=== PATIENT | male | born 1955 | race Caucasian/White ===

== ENCOUNTER 2018-02-16 09:50 | Inpatient (IN) | payer MEDICARE, OTHER ==
[~2018-02-16] VITALS: Ht 182.9 cm; Wt 73.7 kg
[2018-02-16] MEDS ORDERED: morphine 4 MG/ML inj SYRINge IV PRN (10:00)
[2018-02-16] MEDS ORDERED: normal saline 1000ML IV soln IVB ONE (10:00)
[2018-02-16] MEDS ORDERED: ondansetron/PF 4mg/2ml inj IV ONE (10:00)
[2018-02-16] MEDS ORDERED: insulin regular, human 10 units/0.1 ml syringe IV ONE (10:00)
[2018-02-16 10:22] LABS: BASOPHILS % (AUTO) 0 % (0-1); EOSINOPHILS # (AUTO) 0.3 X10'3 (0-0.9); EOSINOPHILS % (AUTO) 1.4 % (0-6); HEMATOCRIT 41.9 % (42.0-52.0); HEMOGLOBIN 14.3 g/dl (14.0-17.9); LYMPHOCYTES # (AUTO) 0.2 X10'3 (1.1-4.8); LYMPHOCYTES % (AUTO) 1.2 % (21-51); MEAN CORPUSCULAR HEMOGLOBIN 32.3 PG (27.0-31.0); MEAN CORPUSCULAR HGB CONC 34.1 % (33.0-36.5); MEAN CORPUSCULAR VOLUME 94.8 FL (78-98); MEAN PLATELET VOLUME 9.5 FL (7.4-10.4); MONOCYTES % (AUTO) 5.4 % (2-12); NEUTROPHILS # (AUTO) 17.3 X10'3 (1.8-7.7); PLATELET COUNT 203 X10'3 (140-440); RED BLOOD COUNT 4.42 X10'6 (4.70-6.10); WHITE BLOOD COUNT 18.8 X10'3 (4.5-11.0)
[2018-02-16 10:38] LABS: ALANINE AMINOTRANSFERASE 26 U/L (12-78); ALBUMIN 3.9 G/DL (3.4-5.0); ALBUMIN/GLOBULIN RATIO 1.4 (1.1-1.5); ALKALINE PHOSPHATASE 73 IU/L (46-116); ANION GAP 31 (8-16); ASPARTATE AMINO TRANSFERASE 15 U/L (10-37); BILIRUBIN,TOTAL 1.2 MG/DL (0.1-1.0); BLOOD UREA NITROGEN 45 MG/DL (7-18); BUN/CREATININE RATIO 24.6 (5.4-32.0); CHLORIDE 95 MMOL/L (99-107); CREATININE 1.83 MG/DL (0.60-1.10); LIPASE 83 U/L (73-393); POTASSIUM 3.4 MMOL/L (3.5-5.1); SODIUM 140 MMOL/L (135-145); TOTAL PROTEIN 6.7 G/DL (6.4-8.2); eGFR 38 ML/MIN
[2018-02-16 11:05] LABS: GLUCOSE 617 MG/DL (70-104); TOTAL CARBON DIOXIDE 14.1 MMOL/L (24-32)
[2018-02-16] MEDS ORDERED: insulin regular, human 100 UNIT in normal saline 100ml IV soln 99 ML IV PRN ×2 (11:05)
[2018-02-16 11:17] LABS: CLARITY,URINE CLEAR (Clear); COLOR,URINE STRAW (Yellow); GLUCOSE, URINE >=1000 mg/dl (Neg); KETONES,URINE >=80 mg/dl (Neg); LEUKOCYTE ESTERASE ,URINE NEGATIVE (Neg); NITRITES, URINE NEGATIVE (Neg); OCCULT BLOOD,URINE NEGATIVE (Neg); PH,URINE 5.5 (4.8-8.0); PROTEIN,URINE NEGATIVE (Neg); UROBILINOGEN,URINE 0.2 E.U/dL (0.2-1.0)
[2018-02-16 11:24] LABS: BACTERIA,URINE NONE SEEN /HPF (Neg); MUCUS STRANDS FEW /LPF (Neg); RBC,URINE 0-2 /HPF (0-2); SQUAMOUS EPITHELIAL CELL,UR FEW /LPF (FEW); TRANSITIONAL EPI CELLS,URINE FEW /HPF; UA COLLECTION TYPE CLN CATCH MIDSTREAM; WBC,URINE 0-4 /HPF (0-4)
[2018-02-16] MEDS ORDERED: proCHLORperazine 10 MG/2 ml inj IV ONE (11:40)
[2018-02-16 11:51] LABS: ABG BASE EXCESS -9.7 mmol/L (-2.0-3.0); ABG HCO3 13.2 mmol/L (22.0-26.0); ABG OXYGEN SATURATION 97.4 % (95-98); ABG PCO2 (T) 22.7 mmHg (35.0-48.0); ABG PH (T) 7.383 (7.350-7.450); ABG PO2 (T) 100.2 mmHg (83-108); ALLEN'S TEST Positive; FCOHb 0.6 % (0.5-1.5); FMetHb 0.2 % (0.3-1.12); FO2Hb 96.6 % (94-100)
[2018-02-16] MEDS ORDERED: sodium bicarbonate (8.4%) inj. 100 MEQ in dextrose 5% water 500ml 500 ML IV PRN (12:21)
[2018-02-16] MEDS ORDERED: potassium CL 20mEq in D5-1/2NS 1,000 ML IV PRN (12:21)
[2018-02-16] MEDS ORDERED: sodium bicarbonate (8.4%) inj. 50 MEQ in dextrose 5% water 500ml 250 ML IV PRN (12:21)
[2018-02-16] MEDS ORDERED: insulin regular, DKA only 100 UNIT in normal saline 100ml IV soln 99 ML IV SCH ×2 (12:21)
[2018-02-16] MEDS: normal saline 1000ml 1,000 ML IV SCH ×6 (12:21→20:21)
[2018-02-16] MEDS ORDERED: sodium phosphate inj. 15 MMOL in dextrose 5%-water 150 ML IV PRN (12:25)
[2018-02-16] MEDS ORDERED: mag hydrox/Alum hydrox/simeth 30ml oral suspension PO PRN (12:25)
[2018-02-16] MEDS ORDERED: magnesium 4gm in 100ml NS 100 ML IV PRN (12:25)
[2018-02-16] MEDS ORDERED: Neutra Phos packet PO PRN ×2 (12:25→23:30)
[2018-02-16] MEDS ORDERED: ipratropium/albuterol 3ml nebule NEB PRN (12:25)
[2018-02-16] MEDS ORDERED: potassium Cl 40MEQ/NS 500ml 500 ML IV PRN ×3 (12:25)
[2018-02-16] MEDS ORDERED: insulin regular, human 10 units/0.1 ml syringe SQ PRN (12:25)
[2018-02-16] MEDS ORDERED: acetaminophen 325mg tablet PO PRN (12:25)
[2018-02-16] MEDS ORDERED: sodium phosphate inj. 30 MMOL in dextrose 5%-water 250 ML IV PRN (12:25)
[2018-02-16] MEDS ORDERED: potassium Cl 20 mEq SR tablet PO PRN ×4 (12:25)
[2018-02-16] MEDS ORDERED: magnesium 1gm/100ml D5W IVPB 100 ML IV PRN (12:25)
[2018-02-16] MEDS ORDERED: IPRA3AMP31 IH (12:58)
[2018-02-16] MEDS ORDERED: INSU100V12 SQ (12:58)
[2018-02-16] MEDS ORDERED: VALA100027 PO (12:58)
[2018-02-16] MEDS ORDERED: ATOR40TA3 PO (12:58)
[2018-02-16] MEDS ORDERED: LISI2.5T2 PO (12:58)
[2018-02-16] MEDS ORDERED: INSU100C4 SQ (12:58)
[2018-02-16] MEDS: insulin regular, DKA only 100 UNIT in normal saline 100ml IV soln 99 ML IV SCH ×2 (13:51)
[2018-02-16 14:40] VITALS: BP 114/44
[2018-02-16 14:42] LABS: ALBUMIN 3.3 G/DL (3.4-5.0); ANION GAP 28 (8-16); BLOOD UREA NITROGEN 39 MG/DL (7-18); BUN/CREATININE RATIO 25.3 (5.4-32.0); CHLORIDE 105 MMOL/L (99-107); CREATININE 1.54 MG/DL (0.60-1.10); GLUCOSE 442 MG/DL (70-104); PHOSPHORUS 2.2 MG/DL (2.3-4.5); POTASSIUM 3.2 MMOL/L (3.5-5.1); SODIUM 145 MMOL/L (135-145); eGFR 46 ML/MIN
[2018-02-16 14:46] LABS: TOTAL CARBON DIOXIDE 12.2 MMOL/L (24-32)
[2018-02-16] MEDS: valacyclovir 500mg tablet PO SCH (17:51)
[2018-02-16 19:00] VITALS: BP 117/46
[2018-02-16 19:20] LABS: ALANINE AMINOTRANSFERASE 20 U/L (12-78); ALKALINE PHOSPHATASE 68 IU/L (46-116); ANION GAP 22 (8-16); ASPARTATE AMINO TRANSFERASE 25 U/L (10-37); BILIRUBIN,TOTAL 0.9 MG/DL (0.1-1.0); BLOOD UREA NITROGEN 35 MG/DL (7-18); BUN/CREATININE RATIO 25.5 (5.4-32.0); CALCIUM 7.8 MG/DL (8.5-10.1); CHLORIDE 110 MMOL/L (99-107); CREATININE 1.37 MG/DL (0.60-1.10); GLUCOSE 228 MG/DL (70-104); POTASSIUM 3.2 MMOL/L (3.5-5.1); SODIUM 146 MMOL/L (135-145); eGFR 52 ML/MIN
[2018-02-16] MEDS: atorvastatin 20mg tablet PO SCH (20:51)
[2018-02-16] MEDS: ondansetron/PF 4mg/2ml inj IV PRN (20:51)
[2018-02-16 22:46] LABS: ALBUMIN 2.9 G/DL (3.4-5.0); BLOOD UREA NITROGEN 28 MG/DL (7-18); BUN/CREATININE RATIO 21.1 (5.4-32.0); CALCIUM 7.8 MG/DL (8.5-10.1); CREATININE 1.33 MG/DL (0.60-1.10); GLUCOSE 87 MG/DL (70-104); TOTAL CARBON DIOXIDE 26.2 MMOL/L (24-32); eGFR 54 ML/MIN
[2018-02-16 23:00] VITALS: BP 106/50
[2018-02-16 23:03] LABS: ANION GAP 7 (8-16); CHLORIDE 115 MMOL/L (99-107); SODIUM 148 MMOL/L (135-145)
[2018-02-16 23:06] LABS: PHOSPHORUS 1.2 MG/DL (2.3-4.5)
[2018-02-17] MEDS: normal saline 1000ml 1,000 ML IV SCH ×11 (00:02→22:31)
[2018-02-17] MEDS ORDERED: dextrose ORAL solution 15 GM/59 ML bottle PO PRN ×2 (00:05)
[2018-02-17] MEDS ORDERED: glucagon, human recombinant 1mg kit SUBCUT PRN (00:05)
[2018-02-17] MEDS ORDERED: MESSAGE TO PHARMACY PO ONE (00:05)
[2018-02-17] MEDS ORDERED: dextrose 50%-water 50ml dispensing syringe IV PRN ×2 (00:05)
[2018-02-17] MEDS: insulin Lispro (HumaLOG) vial - multi-dose SQ SCH ×3 (00:40→13:29)
[2018-02-17 03:00] VITALS: BP 123/57
[2018-02-17 03:02] LABS: BASOPHILS % (AUTO) 0.1 % (0-1); EOSINOPHILS # (AUTO) 0.2 X10'3 (0-0.9); EOSINOPHILS % (AUTO) 1.2 % (0-6); HEMATOCRIT 29.8 % (42.0-52.0); LYMPHOCYTES # (AUTO) 0.6 X10'3 (1.1-4.8); LYMPHOCYTES % (AUTO) 5.2 % (21-51); MEAN CORPUSCULAR HEMOGLOBIN 32.1 PG (27.0-31.0); MEAN CORPUSCULAR HGB CONC 33.7 % (33.0-36.5); MEAN CORPUSCULAR VOLUME 95.3 FL (78-98); MEAN PLATELET VOLUME 8.6 FL (7.4-10.4); MONOCYTES % (AUTO) 7.6 % (2-12); NEUTROPHILS # (AUTO) 10.8 X10'3 (1.8-7.7); NEUTROPHILS % (AUTO) 85.9 % (42-75); PLATELET COUNT 121 X10'3 (140-440); RED BLOOD COUNT 3.13 X10'6 (4.70-6.10); RED CELL DISTRIBUTION WIDTH 13.6 % (11.5-14.5); WHITE BLOOD COUNT 12.5 X10'3 (4.5-11.0)
[2018-02-17 04:41] LABS: ALANINE AMINOTRANSFERASE 22 U/L (12-78); ALBUMIN 2.9 G/DL (3.4-5.0); ALBUMIN/GLOBULIN RATIO 1.2 (1.1-1.5); ALKALINE PHOSPHATASE 57 IU/L (46-116); ANION GAP 8 (8-16); ASPARTATE AMINO TRANSFERASE 23 U/L (10-37); BILIRUBIN,TOTAL 0.9 MG/DL (0.1-1.0); BLOOD UREA NITROGEN 24 MG/DL (7-18); BUN/CREATININE RATIO 19.8 (5.4-32.0); CALCIUM 8.1 MG/DL (8.5-10.1); CHLORIDE 113 MMOL/L (99-107); CHOL/HDL RATIO 3.7 (0.00-4.99); CHOLESTEROL 179 MG/DL (0-200); CREATININE 1.21 MG/DL (0.60-1.10); GLUCOSE 167 MG/DL (70-104); HDL CHOLESTEROL 48 MG/DL (35-60); MAGNESIUM 1.9 MG/DL (1.5-2.4); PHOSPHORUS 1.5 MG/DL (2.3-4.5); POTASSIUM 4.2 MMOL/L (3.5-5.1); SODIUM 147 MMOL/L (135-145); TOTAL CARBON DIOXIDE 25.6 MMOL/L (24-32); TOTAL PROTEIN 5.3 G/DL (6.4-8.2); TRIGLYCERIDES 65 MG/DL (20-135); eGFR 61 ML/MIN
[2018-02-17 06:00] VITALS: BP 132/47
[2018-02-17] MEDS ORDERED: INSU100V9 SQ (07:57)
[2018-02-17] MEDS: K and/or MAG REPLACEMENT MC SCH (08:00)
[2018-02-17] MEDS ORDERED: K and/or MAG REPLACEMENT MC SCH (08:00)
[2018-02-17] MEDS: lisinopril 2.5mg tablet PO SCH (08:18)
[2018-02-17] MEDS: enoxaparin 40mg/0.4ml syringe SQ SCH (08:19)
[2018-02-17] MEDS: insulin regular, DKA only 100 UNIT in normal saline 100ml IV soln 99 ML IV SCH ×8 (09:05→20:45)
[2018-02-17] MEDS: valacyclovir 500mg tablet PO SCH ×3 (09:27→16:00)
[2018-02-17] MEDS ORDERED: pneumococcal 23-VAL P-sac vacc 25 mcg/0.5ml vial IMVAC ONE (10:00)
[2018-02-17 11:00] VITALS: BP 124/54
[2018-02-17 13:54] LABS: LDL CHOLESTEROL 122 MG/DL (50-100)
[2018-02-17] MEDS ORDERED: adenosine 3mg/ml 2ml vial IV ONE (13:55)
[2018-02-17 14:12] LABS: ALANINE AMINOTRANSFERASE 38 U/L (12-78); ALBUMIN 3.2 G/DL (3.4-5.0); ALBUMIN/GLOBULIN RATIO 1.2 (1.1-1.5); ALKALINE PHOSPHATASE 68 IU/L (46-116); ANION GAP 18 (8-16); ASPARTATE AMINO TRANSFERASE 68 U/L (10-37); BILIRUBIN,TOTAL 1.5 MG/DL (0.1-1.0); BLOOD UREA NITROGEN 22 MG/DL (7-18); BUN/CREATININE RATIO 19.8 (5.4-32.0); CALCIUM 8.2 MG/DL (8.5-10.1); CHLORIDE 106 MMOL/L (99-107); CREATININE 1.11 MG/DL (0.60-1.10); GLUCOSE 343 MG/DL (70-104); POTASSIUM 3.9 MMOL/L (3.5-5.1); SODIUM 143 MMOL/L (135-145); TOTAL CARBON DIOXIDE 18.8 MMOL/L (24-32); TOTAL PROTEIN 5.8 G/DL (6.4-8.2); eGFR 67 ML/MIN
[2018-02-17] MEDS ORDERED: sodium bicarbonate (8.4%) inj. 50 MEQ in dextrose 5% water 500ml 250 ML IV PRN (14:31)
[2018-02-17] MEDS ORDERED: sodium bicarbonate (8.4%) inj. 100 MEQ in dextrose 5% water 500ml 500 ML IV PRN (14:31)
[2018-02-17] MEDS ORDERED: potassium Cl 40MEQ/NS 500ml 500 ML IV PRN ×2 (14:35)
[2018-02-17] MEDS ORDERED: insulin regular, human 10 units/0.1 ml syringe SQ PRN (14:35)
[2018-02-17] MEDS ORDERED: metoprolol tartrate 1mg/ml inj IV PRN (14:40)
[2018-02-17] MEDS: metoprolol tartrate 50mg tablet PO SCH ×2 (14:50→20:00)
[2018-02-17 15:00] VITALS: BP 136/64
[2018-02-17] MEDS: metoclopramide 5 mg/ml inj IV PRN ×2 (15:30→23:14)
[2018-02-17] MEDS ORDERED: dextrose 5%-1/4 normal saline 1,000 ML IV PRN (15:50)
[2018-02-17 15:51] LABS: ALBUMIN 2.9 G/DL (3.4-5.0); ANION GAP 14 (8-16); BLOOD UREA NITROGEN 21 MG/DL (7-18); BUN/CREATININE RATIO 17.9 (5.4-32.0); CALCIUM 8.1 MG/DL (8.5-10.1); CHLORIDE 110 MMOL/L (99-107); CREATININE 1.17 MG/DL (0.60-1.10); GLUCOSE 255 MG/DL (70-104); POTASSIUM 3.1 MMOL/L (3.5-5.1); SODIUM 146 MMOL/L (135-145); TOTAL CARBON DIOXIDE 22.4 MMOL/L (24-32); eGFR 63 ML/MIN
[2018-02-17 15:58] LABS: PHOSPHORUS 0.8 MG/DL (2.3-4.5)
[2018-02-17 17:35] LABS: ANION GAP 10 (8-16); BLOOD UREA NITROGEN 18 MG/DL (7-18); BUN/CREATININE RATIO 15.1 (5.4-32.0); CALCIUM 7.5 MG/DL (8.5-10.1); CHLORIDE 111 MMOL/L (99-107); CREATININE 1.19 MG/DL (0.60-1.10); GLUCOSE 141 MG/DL (70-104); SODIUM 146 MMOL/L (135-145); TOTAL CARBON DIOXIDE 24.6 MMOL/L (24-32); eGFR 62 ML/MIN
[2018-02-17] MEDS: Protein Smoothie (high protein) 240ml (8oz) cup PO SCH ×2 (17:39→18:00)
[2018-02-17] MEDS ORDERED: sodium phosphate inj. 30 MMOL in dextrose 5%-water 250 ML IV PRN (18:00)
[2018-02-17] MEDS ORDERED: sodium phosphate inj. 15 MMOL in dextrose 5%-water 150 ML IV PRN (18:00)
[2018-02-17 18:04] LABS: POTASSIUM 2.6 MMOL/L (3.5-5.1)
[2018-02-17 18:05] LABS: PHOSPHORUS 0.8 MG/DL (2.3-4.5)
[2018-02-17 19:00] VITALS: BP 95/61
[2018-02-17] MEDS: potassium Cl 40MEQ/NS 500ml 500 ML IV PRN ×2 (19:27)
[2018-02-17] MEDS: atorvastatin 20mg tablet PO SCH (21:00)
[2018-02-17] MEDS: insulin glargine (Lantus) pen - multi-dose SQ SCH (21:00)
[2018-02-17 21:59] LABS: ALBUMIN 2.8 G/DL (3.4-5.0); ANION GAP 7 (8-16); BLOOD UREA NITROGEN 16 MG/DL (7-18); BUN/CREATININE RATIO 16.8 (5.4-32.0); CALCIUM 7.9 MG/DL (8.5-10.1); CHLORIDE 111 MMOL/L (99-107); CREATININE 0.95 MG/DL (0.60-1.10); GLUCOSE 121 MG/DL (70-104); POTASSIUM 3.4 MMOL/L (3.5-5.1); SODIUM 144 MMOL/L (135-145); TOTAL CARBON DIOXIDE 26.1 MMOL/L (24-32); eGFR 80 ML/MIN
[2018-02-17] MEDS: ondansetron/PF 4mg/2ml inj IV PRN (22:10)
[2018-02-17 23:00] VITALS: BP 126/61
[2018-02-18] MEDS: potassium Cl 40MEQ/NS 500ml 500 ML IV PRN (01:25)
[2018-02-18 02:18] LABS: ALBUMIN 2.7 G/DL (3.4-5.0); ANION GAP 9 (8-16); BLOOD UREA NITROGEN 14 MG/DL (7-18); BUN/CREATININE RATIO 15.2 (5.4-32.0); CALCIUM 7.5 MG/DL (8.5-10.1); CHLORIDE 109 MMOL/L (99-107); CREATININE 0.92 MG/DL (0.60-1.10); GLUCOSE 258 MG/DL (70-104); PHOSPHORUS 1.8 MG/DL (2.3-4.5); POTASSIUM 3.8 MMOL/L (3.5-5.1); SODIUM 143 MMOL/L (135-145); TOTAL CARBON DIOXIDE 25.4 MMOL/L (24-32); eGFR 83 ML/MIN
[2018-02-18] MEDS: normal saline 1000ml 1,000 ML IV SCH ×8 (02:31→21:48)
[2018-02-18 03:00] VITALS: BP 123/57
[2018-02-18] MEDS: potassium CL 20mEq in D5-1/2NS 1,000 ML IV PRN ×2 (03:35→15:50)
[2018-02-18 06:00] VITALS: BP 135/66
[2018-02-18 06:30] LABS: BASOPHILS % (AUTO) 0.2 % (0-1); EOSINOPHILS % (AUTO) 0.2 % (0-6); HEMATOCRIT 36.6 % (42.0-52.0); HEMOGLOBIN 13.1 g/dl (14.0-17.9); LYMPHOCYTES # (AUTO) 1.1 X10'3 (1.1-4.8); MEAN CORPUSCULAR HEMOGLOBIN 34.2 PG (27.0-31.0); MEAN CORPUSCULAR HGB CONC 35.7 % (33.0-36.5); MEAN CORPUSCULAR VOLUME 95.8 FL (78-98); MEAN PLATELET VOLUME 9.6 FL (7.4-10.4); MONOCYTES # (AUTO) 0.9 X10'3 (0-0.9); MONOCYTES % (AUTO) 8.4 % (2-12); NEUTROPHILS % (AUTO) 81.2 % (42-75); PLATELET COUNT 115 X10'3 (140-440); RED BLOOD COUNT 3.82 X10'6 (4.70-6.10); RED CELL DISTRIBUTION WIDTH 12.7 % (11.5-14.5)
[2018-02-18 06:40] LABS: ALANINE AMINOTRANSFERASE 63 U/L (12-78); ALBUMIN 2.8 G/DL (3.4-5.0); ALBUMIN/GLOBULIN RATIO 1.2 (1.1-1.5); ALKALINE PHOSPHATASE 63 IU/L (46-116); ANION GAP 7 (8-16); ASPARTATE AMINO TRANSFERASE 61 U/L (10-37); BLOOD UREA NITROGEN 11 MG/DL (7-18); BUN/CREATININE RATIO 11.1 (5.4-32.0); CALCIUM 7.4 MG/DL (8.5-10.1); CHLORIDE 111 MMOL/L (99-107); CREATININE 0.99 MG/DL (0.60-1.10); GLUCOSE 165 MG/DL (70-104); MAGNESIUM 1.6 MG/DL (1.5-2.4); POTASSIUM 3.5 MMOL/L (3.5-5.1); SODIUM 145 MMOL/L (135-145); TOTAL CARBON DIOXIDE 26.6 MMOL/L (24-32); TOTAL PROTEIN 5.2 G/DL (6.4-8.2); eGFR 76 ML/MIN
[2018-02-18] MEDS ORDERED: potassium Cl 20 mEq SR tablet PO PRN (07:05)
[2018-02-18] MEDS ORDERED: potassium Cl 40MEQ/NS 500ml 500 ML IV PRN (07:05)
[2018-02-18] MEDS ORDERED: magnesium 1gm/100ml D5W IVPB 100 ML IV PRN (07:05)
[2018-02-18] MEDS: metoclopramide 5 mg/ml inj IV PRN ×2 (07:09→13:36)
[2018-02-18 07:15] LABS: ABG BASE EXCESS 1.5 mmol/L (-2.0-3.0); ABG HCO3 25.2 mmol/L (22.0-26.0); ABG OXYGEN SATURATION 93.3 % (95-98); ABG PCO2 (T) 36.7 mmHg (35.0-48.0); ABG PH (T) 7.455 (7.350-7.450); ABG PO2 (T) 63.1 mmHg (83-108); FCOHb 0.5 % (0.5-1.5); FMetHb 0.2 % (0.3-1.12); FO2Hb 92.6 % (94-100); TOTAL HEMOGLOBIN 12.9 G/dl (14.0-18.0)
[2018-02-18] MEDS: lisinopril 2.5mg tablet PO SCH (07:59)
[2018-02-18] MEDS: metoprolol tartrate 50mg tablet PO SCH ×2 (07:59→20:06)
[2018-02-18] MEDS: K and/or MAG REPLACEMENT MC SCH (08:00)
[2018-02-18] MEDS: enoxaparin 40mg/0.4ml syringe SQ SCH (08:00)
[2018-02-18] MEDS ORDERED: K and/or MAG REPLACEMENT MC SCH (08:00)
[2018-02-18] MEDS: Protein Smoothie (high protein) 240ml (8oz) cup PO SCH ×3 (08:00→18:31)
[2018-02-18] MEDS: valacyclovir 500mg tablet PO SCH ×3 (08:47→16:00)
[2018-02-18 11:00] VITALS: BP 124/61
[2018-02-18] MEDS: sucralfate 1gm/10ml UD suspension PO SCH ×3 (11:32→20:07)
[2018-02-18 15:00] VITALS: BP 135/73
[2018-02-18] MEDS: ondansetron/PF 4mg/2ml inj IV PRN (16:38)
[2018-02-18] MEDS ORDERED: guaiFENesin/codeine phos 10ml UD oral syrup PO PRN (16:45)
[2018-02-18] MEDS: benzonatate 100mg capsule PO SCH (17:16)
[2018-02-18] MEDS: insulin Lispro (HumaLOG) vial - multi-dose SQ SCH (17:42)
[2018-02-18 19:00] VITALS: BP 103/55
[2018-02-18] MEDS: atorvastatin 20mg tablet PO SCH (20:06)
[2018-02-18] MEDS: famotidine 20mg tablet PO SCH (20:06)
[2018-02-18] MEDS: insulin glargine (Lantus) pen - multi-dose SQ SCH (21:15)
[2018-02-18 23:00] VITALS: BP 120/61
[2018-02-19] MEDS: valacyclovir 500mg tablet PO SCH
[2018-02-19] MEDS: normal saline 1000ml 1,000 ML IV SCH ×5 (02:31→10:30)
[2018-02-19 03:00] VITALS: BP 153/68
[2018-02-19 05:27] LABS: BASOPHILS % (AUTO) 0.3 % (0-1); EOSINOPHILS # (AUTO) 0.1 X10'3 (0-0.9); EOSINOPHILS % (AUTO) 1.4 % (0-6); HEMATOCRIT 40.3 % (42.0-52.0); HEMOGLOBIN 13.6 g/dl (14.0-17.9); LYMPHOCYTES # (AUTO) 1.4 X10'3 (1.1-4.8); LYMPHOCYTES % (AUTO) 14.6 % (21-51); MEAN CORPUSCULAR HEMOGLOBIN 32.2 PG (27.0-31.0); MEAN CORPUSCULAR HGB CONC 33.8 % (33.0-36.5); MEAN CORPUSCULAR VOLUME 95.2 FL (78-98); MEAN PLATELET VOLUME 9.4 FL (7.4-10.4); MONOCYTES # (AUTO) 0.6 X10'3 (0-0.9); MONOCYTES % (AUTO) 6.8 % (2-12); NEUTROPHILS # (AUTO) 7.2 X10'3 (1.8-7.7); NEUTROPHILS % (AUTO) 76.9 % (42-75); PLATELET COUNT 108 X10'3 (140-440); RED BLOOD COUNT 4.23 X10'6 (4.70-6.10); RED CELL DISTRIBUTION WIDTH 13.6 % (11.5-14.5); WHITE BLOOD COUNT 9.4 X10'3 (4.5-11.0)
[2018-02-19 05:43] LABS: ALANINE AMINOTRANSFERASE 60 U/L (12-78); ALKALINE PHOSPHATASE 79 IU/L (46-116); ANION GAP 6 (8-16); ASPARTATE AMINO TRANSFERASE 55 U/L (10-37); BILIRUBIN,TOTAL 0.9 MG/DL (0.1-1.0); BLOOD UREA NITROGEN 9 MG/DL (7-18); BUN/CREATININE RATIO 14.1 (5.4-32.0); CALCIUM 7.6 MG/DL (8.5-10.1); CHLORIDE 104 MMOL/L (99-107); CREATININE 0.64 MG/DL (0.60-1.10); GLUCOSE 181 MG/DL (70-104); MAGNESIUM 2.3 MG/DL (1.5-2.4); POTASSIUM 3.2 MMOL/L (3.5-5.1); SODIUM 140 MMOL/L (135-145); TOTAL CARBON DIOXIDE 30.2 MMOL/L (24-32); TOTAL PROTEIN 5.9 G/DL (6.4-8.2); eGFR > 90 ML/MIN
[2018-02-19 06:00] VITALS: BP 132/67
[2018-02-19] MEDS ORDERED: pantoprazole 40mg Tablet.DR PO SCH (07:30)
[2018-02-19] MEDS: sucralfate 1gm/10ml UD suspension PO SCH ×2 (07:44→11:00)
[2018-02-19] MEDS: famotidine 20mg tablet PO SCH (07:45)
[2018-02-19] MEDS: lisinopril 2.5mg tablet PO SCH (07:45)
[2018-02-19] MEDS: benzonatate 100mg capsule PO SCH ×2 (07:45)
[2018-02-19] MEDS: enoxaparin 40mg/0.4ml syringe SQ SCH (07:45)
[2018-02-19] MEDS: metoprolol tartrate 50mg tablet PO SCH (07:48)
[2018-02-19] MEDS: Protein Smoothie (high protein) 240ml (8oz) cup PO SCH (07:48)
[2018-02-19] MEDS: K and/or MAG REPLACEMENT MC SCH (07:48)
[2018-02-19] MEDS: insulin Lispro (HumaLOG) vial - multi-dose SQ SCH (10:00)
[2018-02-19] MEDS ORDERED: METO25TA6 PO (10:09)
[2018-02-19] MEDS ORDERED: SUCR1ORA PO (10:09)
[2018-02-19] MEDS ORDERED: FAMO20TA8 PO (10:09)
[2018-02-19] MEDS ORDERED: POTA-82 PO (10:09)
== END 2018-02-19 12:39 | disposition home or self-care (01) | DRG 637 ==
LOC: ER 09:51 → ED HOLD 12:21 → PCU 3S 14:43
PROVIDERS: ADMIT Family Medicine; ATTEND Family Medicine
DX: E10.10 Type 1 diabetes mellitus with ketoacidosis without coma (principal); G93.41 Metabolic encephalopathy; N17.9 Acute kidney failure, unspecified; I47.1 Supraventricular tachycardia; B02.9 Zoster without complications; E86.0 Dehydration; D72.829 Elevated white blood cell count, unspecified; E87.8 Other disorders of electrolyte and fluid balance, not elsewhere classified; E78.00 Pure hypercholesterolemia, unspecified; E78.5 Hyperlipidemia, unspecified; F17.210 Nicotine dependence, cigarettes, uncomplicated; I10 Essential (primary) hypertension; J44.9 Chronic obstructive pulmonary disease, unspecified; K21.9 Gastro-esophageal reflux disease without esophagitis; Z79.4 Long term (current) use of insulin; Z79.899 Other long term (current) drug therapy; Z82.49 Family history of ischemic heart disease and other diseases of the circulatory system; Z23 Encounter for immunization; Z71.6 Tobacco abuse counseling
CPT/HCPCS: 36415; 36600; 71045; 80048; 80053; 80061; 81001; 82803; 82948; 83036; 83690; 83735; 84100; 85018; 85025; 87070; 90732; 93005; 93306; 94667; 94668; 94760; 96361; 96374; 96375; 99285; A6213; J0153; J0780; J1650; J1815; J2405; J2765; J3475; J3480; J3490; J7030; J7060

== ENCOUNTER 2019-03-08 13:52 | Inpatient (IN) | payer MEDICARE, OTHER ==
[~2019-03-08] VITALS: Ht 185.4 cm; Wt 67.9 kg
[2019-03-08] MEDS: K and/or MAG REPLACEMENT MC SCH (08:00)
[~2019-03-08 13:52] MED LIST: AMIO200T61 PO; ASPI-1071 PO; ATOR40TA7 PO; CLOP75TA35 PO; INSU100C4 SQ; INSU100V12 SQ; IPRA3AMP31 IH; LISI2.5T2 PO
[2019-03-08] MEDS ORDERED: ondansetron/PF 4mg/2ml inj IV ONE (14:00)
[2019-03-08] MEDS ORDERED: insulin regular, human vial - multi-dose IV PRN ×3 (14:00→15:45)
[2019-03-08] MEDS ORDERED: insulin regular, human 10 units/0.1 ml syringe IV PRN ×2 (14:10→16:08)
[2019-03-08] MEDS: normal saline 1000ml 1,000 ML IV SCH ×7 (14:14→23:43)
[2019-03-08 14:22] LABS: BASOPHILS % (AUTO) 0.3 % (0-1); EOSINOPHILS % (AUTO) 0 % (0-6); LYMPHOCYTES % (AUTO) 5.6 % (21-51); MEAN PLATELET VOLUME 9.1 FL (7.4-10.4); MONOCYTES # (AUTO) 1.4 X10'3 (0-0.9); MONOCYTES % (AUTO) 7.7 % (2-12); NEUTROPHILS # (AUTO) 15.4 X10'3 (1.8-7.7); NEUTROPHILS % (AUTO) 86.4 % (42-75); PLATELET COUNT 192 X10'3 (140-440); RED BLOOD COUNT 3.36 X10'6 (4.70-6.10); WHITE BLOOD COUNT 17.8 X10'3 (4.5-11.0)
[2019-03-08 14:25] LABS: CLARITY,URINE CLEAR (Clear); COLOR,URINE STRAW (Yellow); GLUCOSE, URINE >=1000 mg/dl (Neg); KETONES,URINE >=80 mg/dl (Neg); LEUKOCYTE ESTERASE ,URINE NEGATIVE (Neg); NITRITES, URINE NEGATIVE (Neg); OCCULT BLOOD,URINE LARGE (Neg); PROTEIN,URINE NEGATIVE (Neg); UA COLLECTION TYPE URINAL; UROBILINOGEN,URINE 0.2 E.U/dL (0.2-1.0)
[2019-03-08 14:26] LABS: ABG BASE EXCESS -22.9 mmol/L (-2.0-3.0); ABG HCO3 4.9 mmol/L (22.0-26.0); ABG OXYGEN SATURATION 89.7 % (95-98); ABG PCO2 (T) 16.1 mmHg (35.0-45.0); ABG PH (T) 7.097 (7.350-7.450); ABG PO2 (T) 77.2 mmHg (83-108); ALLEN'S TEST Positive; FCOHb 0.3 % (0.5-1.5); FMetHb 0.2 % (0.3-1.12); FO2Hb 89.3 % (94-100)
[2019-03-08] MEDS ORDERED: CefTRIAXone 2gm/D5W 50ml 50 ML IV ONE (14:30)
[2019-03-08 14:33] LABS: HYALINE CASTS 0-3 /LPF (NEGATIVE); MUCUS STRANDS FEW /LPF (Neg); SQUAMOUS EPITHELIAL CELL,UR FEW /LPF (FEW)
[2019-03-08 14:34] LABS: BACTERIA,URINE 1+ /HPF (Neg); RBC,URINE 0-2 /HPF (0-2); WBC,URINE 0-4 /HPF (0-4)
[2019-03-08 14:42] LABS: ANION GAP 38 (8-16); BLOOD UREA NITROGEN 30 MG/DL (7-18); BUN/CREATININE RATIO 17.4 (5.4-32.0); CHLORIDE 93 MMOL/L (99-107); CREATININE 1.72 MG/DL (0.60-1.10); LIPASE 1026 U/L (73-393); PHOSPHORUS 7.1 MG/DL (2.3-4.5); SODIUM 136 MMOL/L (135-145); eGFR 40 ML/MIN
[2019-03-08] MEDS ORDERED: potassium CL 20mEq in D5-1/2NS 1,000 ML IV PRN ×3 (14:50→15:43)
[2019-03-08 14:55] LABS: GLUCOSE 927 MG/DL (70-104)
[2019-03-08 14:56] LABS: TOTAL CARBON DIOXIDE 5.2 MMOL/L (24-32)
--- NOTE | 2019-03-08 15:09 | NUR ---
[facility]: [phone] [facility]: [phone] MOM-MARICEL: [phone]
[2019-03-08] MEDS: insulin regular, DKA only 100 UNIT in normal saline 100ml IV soln 99 ML IV SCH ×2 (15:18)
[2019-03-08 15:29] LABS: HEMATOCRIT 33.9 % (42.0-52.0); HEMOGLOBIN 10.8 g/dl (14.0-17.9); MEAN CORPUSCULAR HEMOGLOBIN 33.1 PG (27.0-31.0); MEAN CORPUSCULAR VOLUME 103.9 FL (78-98)
[2019-03-08 15:30] LABS: MEAN CORPUSCULAR HGB CONC 31.8 g/dL (33.0-36.5); RED CELL DISTRIBUTION WIDTH 13.7 % (11.5-14.5)
[2019-03-08] MEDS ORDERED: sodium bicarbonate (8.4%) inj. 100 MEQ in dextrose 5% water 500ml 500 ML IV PRN (15:34)
[2019-03-08] MEDS ORDERED: sodium bicarbonate (8.4%) inj. 50 MEQ in dextrose 5% water 500ml 250 ML IV PRN (15:34)
[2019-03-08] MEDS ORDERED: normal saline 1000ml 1,000 ML IV SCH (15:34)
[2019-03-08] MEDS ORDERED: insulin regular, DKA only 100 UNIT in normal saline 100ml IV soln 99 ML IV SCH ×4 (15:34→15:43)
[2019-03-08] MEDS ORDERED: potassium Cl 20 mEq SR tablet PO PRN ×4 (15:35→15:45)
[2019-03-08] MEDS ORDERED: Neutra Phos packet PO PRN (15:35)
[2019-03-08] MEDS ORDERED: sodium phosphate inj. 15 MMOL in dextrose 5%-water 150 ML IV PRN (15:35)
[2019-03-08] MEDS ORDERED: potassium CL 10mEq/100ml bag 100 ML IV PRN ×4 (15:35→15:45)
[2019-03-08] MEDS ORDERED: sodium phosphate inj. 30 MMOL in dextrose 5%-water 250 ML IV PRN (15:35)
[2019-03-08] MEDS ORDERED: ondansetron/PF 4mg/2ml inj IV PRN (15:40)
[2019-03-08] MEDS ORDERED: HYDROcodone/acetaminophen 5mg/325mg tablet PO PRN (15:40)
[2019-03-08] MEDS ORDERED: docusate sod 100mg capsule PO PRN (15:40)
[2019-03-08] MEDS ORDERED: acetaminophen 325mg tablet PO PRN ×2 (15:40)
[2019-03-08] MEDS ORDERED: morphine 2 MG/ML inj. syringe IV PRN (15:40)
[2019-03-08] MEDS ORDERED: SODIUM BICARBONATE IV PRN (15:43)
[2019-03-08] MEDS ORDERED: sodium bicarbonate (8.4%) inj. 100 MEQ in dextrose 5% water 500ml 1,000 ML IV PRN (15:43)
[2019-03-08] MEDS ORDERED: DEXTROSE 5% IV PRN (15:43)
[2019-03-08] MEDS ORDERED: WATER IV PRN (15:43)
[2019-03-08] MEDS: piperacillin/tazo 3.375gm/50ml 50 ML IV SCH (16:20)
[2019-03-08 16:28] LABS: HEMOGLOBIN A1C 13.5 % (4.5-6.2)
[2019-03-08] MEDS ORDERED: AMIO200T61 PO (17:06)
[2019-03-08] MEDS ORDERED: CLOP75TA35 PO (17:06)
--- NOTE | 2019-03-08 18:45 | NUR ---
pt brought to room 2016 via timrjoanne from ER. Pt A&O times 3. pt oriented to room, visiting hours, bed controls, tv, and call light. pt bathed, linen changed, new gown on. pt given warm blankets and urinal is at bedside. pt informed that his blood sugar will be checked q1h. pt verbalized understanding. vital signs stable at this time. will continue to monitor
--- NOTE | 2019-03-08 18:46 | NUR ---
Patient in room CICU 2016. I have received report and had the opportunity to ask questions and assume patient care.
[2019-03-08 19:00] VITALS: BP 104/60
[2019-03-08 20:00] VITALS: BP 108/61
[2019-03-08] MEDS: heparin, porcine 5000 units/ml vial SQ SCH (20:00)
[2019-03-08 20:41] LABS: ALBUMIN 2.9 G/DL (3.4-5.0); ANION GAP 27 (8-16); BLOOD UREA NITROGEN 24 MG/DL (7-18); BUN/CREATININE RATIO 14.4 (5.4-32.0); CALCIUM 7.4 MG/DL (8.5-10.1); CHLORIDE 104 MMOL/L (99-107); CREATININE 1.67 MG/DL (0.60-1.10); GLUCOSE 304 MG/DL (70-104); PHOSPHORUS 4.7 MG/DL (2.3-4.5); POTASSIUM 4.2 MMOL/L (3.5-5.1); SODIUM 143 MMOL/L (135-145); eGFR 42 ML/MIN
[2019-03-08 20:49] LABS: TOTAL CARBON DIOXIDE 11.6 MMOL/L (24-32)
[2019-03-08 21:00] VITALS: BP 101/69
[2019-03-08] MEDS ORDERED: temazepam 15mg capsule PO PRN (21:00)
[2019-03-08 22:00] VITALS: BP 101/60
--- NOTE | 2019-03-08 22:00 | NUR ---
Patient in room CICU 2016. I have received report from ROCHELLE Reeves and had the opportunity to ask questions and assume patient care.
[2019-03-08 22:56] LABS: ALANINE AMINOTRANSFERASE 149 U/L (12-78); ALBUMIN 2.8 G/DL (3.4-5.0); ALBUMIN/GLOBULIN RATIO 0.9 (1.1-1.5); ALKALINE PHOSPHATASE 157 IU/L (46-116); ANION GAP 27 (8-16); ASPARTATE AMINO TRANSFERASE 260 U/L (10-37); BILIRUBIN,TOTAL 0.5 MG/DL (0.1-1.0); BLOOD UREA NITROGEN 22 MG/DL (7-18); BUN/CREATININE RATIO 14.1 (5.4-32.0); CALCIUM 7.3 MG/DL (8.5-10.1); CHLORIDE 105 MMOL/L (99-107); CREATININE 1.56 MG/DL (0.60-1.10); GLUCOSE 171 MG/DL (70-104); PHOSPHORUS 3.2 MG/DL (2.3-4.5); POTASSIUM 3.7 MMOL/L (3.5-5.1); SODIUM 146 MMOL/L (135-145); eGFR 45 ML/MIN
[2019-03-08 22:59] LABS: TOTAL CARBON DIOXIDE 14.4 MMOL/L (24-32)
[2019-03-08 23:00] VITALS: BP 105/58
[2019-03-09] VITALS (25 sets, daily range): BP systolic 85–107; BP diastolic 51–65
[2019-03-09] MEDS: piperacillin/tazo 3.375gm/50ml 50 ML IV SCH ×4 (00:06→23:54)
[2019-03-09] MEDS: insulin regular, DKA only 100 UNIT in normal saline 100ml IV soln 99 ML IV SCH ×2 (00:51)
[2019-03-09] MEDS ORDERED: DEXTROSE 10 % AND 0.45 % NACL 1,000 ML IV SCH (02:10)
--- NOTE | 2019-03-09 02:18 | NUR ---
Patient blood sugar 103 this hour. kcl 20meq in d5w-1/2 NS at max rate of 250ml/hr, insulin drip at minimum rate of 5units/hr. Mike Zhang notified about this. Recommend to substitute d5w for d10w. LUMBER HACKER ordered this at this time.
[2019-03-09] MEDS ORDERED: potassium cl 20mEq in 1/2 NS 1,000 ML IV SCH (03:00)
[2019-03-09] MEDS ORDERED: Dextrose 10%-water IV solution 1,000 ML IV SCH (03:15)
[2019-03-09] MEDS: normal saline 1000ml 1,000 ML IV SCH ×2 (03:43→08:10)
[2019-03-09 04:30] LABS: BASOPHILS # (AUTO) 0.1 X10'3 (0-0.2); BASOPHILS % (AUTO) 0.3 % (0-1); EOSINOPHILS % (AUTO) 0 % (0-6); HEMATOCRIT 33.2 % (42.0-52.0); HEMOGLOBIN 11.3 g/dl (14.0-17.9); LYMPHOCYTES # (AUTO) 1.8 X10'3 (1.1-4.8); LYMPHOCYTES % (AUTO) 10.6 % (21-51); MEAN CORPUSCULAR HEMOGLOBIN 33.8 PG (27.0-31.0); MEAN CORPUSCULAR HGB CONC 34.1 g/dL (33.0-36.5); MEAN CORPUSCULAR VOLUME 99.4 FL (78-98); MEAN PLATELET VOLUME 9.1 FL (7.4-10.4); MONOCYTES # (AUTO) 1.1 X10'3 (0-0.9); MONOCYTES % (AUTO) 6.5 % (2-12); NEUTROPHILS # (AUTO) 13.9 X10'3 (1.8-7.7); NEUTROPHILS % (AUTO) 82.6 % (42-75); PLATELET COUNT 127 X10'3 (140-440); RED BLOOD COUNT 3.34 X10'6 (4.70-6.10); RED CELL DISTRIBUTION WIDTH 13.4 % (11.5-14.5); WHITE BLOOD COUNT 16.9 X10'3 (4.5-11.0)
[2019-03-09 04:51] LABS: ALANINE AMINOTRANSFERASE 139 U/L (12-78); ALBUMIN 2.6 G/DL (3.4-5.0); ALBUMIN/GLOBULIN RATIO 0.8 (1.1-1.5); ALKALINE PHOSPHATASE 146 IU/L (46-116); ANION GAP 8 (8-16); ASPARTATE AMINO TRANSFERASE 247 U/L (10-37); BILIRUBIN,TOTAL 0.3 MG/DL (0.1-1.0); BLOOD UREA NITROGEN 20 MG/DL (7-18); BUN/CREATININE RATIO 14.3 (5.4-32.0); CALCIUM 7.5 MG/DL (8.5-10.1); CHLORIDE 110 MMOL/L (99-107); CHOL/HDL RATIO 3.9 (0.00-4.99); CHOLESTEROL 139 MG/DL (0-200); GLUCOSE 93 MG/DL (70-104); HDL CHOLESTEROL 36 MG/DL (35-60); LDL CHOLESTEROL 85 MG/DL (50-100); PHOSPHORUS 2.5 MG/DL (2.3-4.5); SODIUM 146 MMOL/L (135-145); TOTAL CARBON DIOXIDE 27.7 MMOL/L (24-32); TOTAL PROTEIN 5.8 G/DL (6.4-8.2); TRIGLYCERIDES 90 MG/DL (20-135); eGFR 51 ML/MIN
--- NOTE | 2019-03-09 06:23 | NUR ---
Problems reprioritized. Patient report given, questions answered & plan of care reviewed with ROCHELLE Tellez.
[2019-03-09] MEDS ORDERED: K and/or MAG REPLACEMENT MC SCH (08:00)
[2019-03-09] MEDS: K and/or MAG REPLACEMENT MC SCH (08:00)
[2019-03-09] MEDS: pantoprazole 40mg Tablet.DR PO SCH (08:08)
[2019-03-09] MEDS: clopidogrel 75mg tablet PO SCH (08:08)
[2019-03-09] MEDS: heparin, porcine 5000 units/ml vial SQ SCH ×2 (08:09→20:04)
[2019-03-09] MEDS ORDERED: insulin regular, DKA only 100 UNIT in normal saline 100ml IV soln 99 ML IV SCH ×2 (08:48)
[2019-03-09] MEDS ORDERED: insulin glargine (Lantus) pen - multi-dose SQ ONE (10:15)
[2019-03-09] MEDS ORDERED: insulin regular, human 10 units/0.1 ml syringe SQ ONE ×3 (10:15→10:35)
[2019-03-09] MEDS ORDERED: HUM7525 SQ (10:45)
[2019-03-09] MEDS ORDERED: INSU100I25 SQ (10:45)
[2019-03-09] MEDS ORDERED: ATOR40TA7 PO (10:45)
[2019-03-09] MEDS ORDERED: LISI2.5T2 PO (10:45)
[2019-03-09] MEDS: amiodarone 200mg tablet PO SCH (10:46)
[2019-03-09] MEDS ORDERED: insulin regular, human vial - multi-dose SQ ONE (11:05)
[2019-03-09] MEDS ORDERED: dextrose 50%-water 50ml dispensing syringe IV PRN ×2 (11:10)
[2019-03-09] MEDS ORDERED: glucagon, human recombinant 1mg kit SUBCUT PRN (11:10)
[2019-03-09] MEDS ORDERED: dextrose ORAL solution 15 GM/59 ML bottle PO PRN ×2 (11:10)
--- NOTE | 2019-03-09 14:24 | NUR ---
DM Consult: Pt admit w/ DKA A1C 13.5 hx T1DM, GLU 927, found down at home. MCV 103.9 w/ significant etoh hx per CM; banana bag vs PO thiamin/folic/MVI recommended to MD at rounds. Pt AOx2 does not know home DM meds and likely non-compliant per RN. Advanced to carb controlled diet w/ hyperglycemia protocol. GLU now WNL. Will monitor for PO tolerance. Pt will need DM ed once stable prior to d/c. Rec: 1. continue carb controlled diet 2. thiamin/folic/MVI per MD given etoh hx 3. monitor for ONS needs; pending PO 4. DM ed once stable prior to d/c Addendum: 03/09/19 at [address] Amended: Links added.
[2019-03-09] MEDS: lisinopril 2.5mg tablet PO SCH (14:25)
[2019-03-09] MEDS ORDERED: INSULIN ASPART 14 UNIT SQ SCH (18:00)
--- NOTE | 2019-03-09 18:15 | NUR ---
Patient in room CICU 2016. I have received report and had the opportunity to ask questions and assume patient care.
--- NOTE | 2019-03-09 18:51 | NUR ---
pt did not eat any of his dinner. pt last blood sugar was 96. pt offered JAMES Addendum: 03/09/19 at 1853 by Lala Rogers RN applesauce but reports not being hungry. will continue to monitor
[2019-03-09] MEDS: atorvastatin 20mg tablet PO SCH (20:04)
[2019-03-09] MEDS ORDERED: Insulin Detemir pen SQ SCH (21:00)
[2019-03-09] MEDS ORDERED: insulin glargine (Lantus) pen - multi-dose SQ SCH (21:00)
[2019-03-10] VITALS (19 sets, daily range): BP systolic 90–113; BP diastolic 48–64
--- NOTE | 2019-03-10 04:27 | NUR ---
pt needs strong encouragement to be independent and compliant with care.
[2019-03-10 04:50] LABS: BASOPHILS % (AUTO) 0.1 % (0-1); EOSINOPHILS % (AUTO) 0 % (0-6); HEMATOCRIT 32.2 % (42.0-52.0); LYMPHOCYTES # (AUTO) 0.9 X10'3 (1.1-4.8); LYMPHOCYTES % (AUTO) 8.1 % (21-51); MEAN CORPUSCULAR HEMOGLOBIN 34.4 PG (27.0-31.0); MEAN CORPUSCULAR HGB CONC 34.3 g/dL (33.0-36.5); MEAN CORPUSCULAR VOLUME 100.3 FL (78-98); MEAN PLATELET VOLUME 8.4 FL (7.4-10.4); MONOCYTES # (AUTO) 0.7 X10'3 (0-0.9); MONOCYTES % (AUTO) 6.3 % (2-12); NEUTROPHILS # (AUTO) 9.2 X10'3 (1.8-7.7); NEUTROPHILS % (AUTO) 85.5 % (42-75); PLATELET COUNT 110 X10'3 (140-440); RED BLOOD COUNT 3.21 X10'6 (4.70-6.10); RED CELL DISTRIBUTION WIDTH 13.5 % (11.5-14.5); WHITE BLOOD COUNT 10.7 X10'3 (4.5-11.0)
[2019-03-10 04:59] LABS: ALANINE AMINOTRANSFERASE 119 U/L (12-78); ALBUMIN 2.2 G/DL (3.4-5.0); ALBUMIN/GLOBULIN RATIO 0.8 (1.1-1.5); ALKALINE PHOSPHATASE 135 IU/L (46-116); ANION GAP 5 (8-16); ASPARTATE AMINO TRANSFERASE 241 U/L (10-37); BILIRUBIN,TOTAL 0.4 MG/DL (0.1-1.0); BLOOD UREA NITROGEN 24 MG/DL (7-18); BUN/CREATININE RATIO 17.5 (5.4-32.0); CALCIUM 7.4 MG/DL (8.5-10.1); CHLORIDE 107 MMOL/L (99-107); CREATININE 1.37 MG/DL (0.60-1.10); GLUCOSE 274 MG/DL (70-104); SODIUM 139 MMOL/L (135-145); TOTAL CARBON DIOXIDE 26.7 MMOL/L (24-32); TOTAL PROTEIN 5.1 G/DL (6.4-8.2); eGFR 52 ML/MIN
[2019-03-10] MEDS: K and/or MAG REPLACEMENT MC SCH (08:00)
[2019-03-10] MEDS: pantoprazole 40mg Tablet.DR PO SCH (08:41)
[2019-03-10] MEDS: amiodarone 200mg tablet PO SCH (08:42)
[2019-03-10] MEDS: clopidogrel 75mg tablet PO SCH (08:42)
[2019-03-10] MEDS: lisinopril 2.5mg tablet PO SCH (08:42)
[2019-03-10] MEDS: heparin, porcine 5000 units/ml vial SQ SCH ×2 (08:45→21:33)
[2019-03-10] MEDS: piperacillin/tazo 3.375gm/50ml 50 ML IV SCH (08:51)
[2019-03-10] MEDS ORDERED: insulin glargine (Lantus) pen - multi-dose SQ ONE ×2 (09:25→21:00)
[2019-03-10] MEDS: insulin Lispro (HumaLOG) vial - multi-dose SQ SCH ×3 (09:35→18:46)
--- NOTE | 2019-03-10 11:48 | NUR ---
F/u: Pt has no teeth though family to bring in dentures; MD requests mechanical soft diet addition; dietary notified. Per MD not enough hx to determine of true etoh hx; MCV 103.9 on admit. No etoh protocol per MD at this time. Addendum: 03/10/19 at [address] Amended: Links added.
[2019-03-10 12:57] LABS: MAGNESIUM 1.9 MG/DL (1.5-2.4)
--- NOTE | 2019-03-10 21:00 | NUR ---
Received report from Kelly in ICU. Pt's admission dx was confused with unreadable blood sugar and possible diabetes ketoacidosis. Pt is DM1, and he does not recall if he is taking his insulin. Patient is highly volatile. Pt arrived to PCU via gurney, his VS are as follow: Temp: 97.9, BP: 98/75, HR: 76, SPO2 98% at RA. Pt is alert and oriented X4, denies CP, dizziness, SOB, pain. MRSA was done. Patient does not like to be called "Luis" His last BS at 17:00 was 181. Will continue to monitor
[2019-03-10] MEDS: atorvastatin 20mg tablet PO SCH (21:33)
[2019-03-11 06:00] VITALS: BP 158/89
[2019-03-11 06:28] LABS: BASOPHILS % (AUTO) 0.2 % (0-1); EOSINOPHILS % (AUTO) 0.2 % (0-6); HEMATOCRIT 34.7 % (42.0-52.0); LYMPHOCYTES # (AUTO) 1.5 X10'3 (1.1-4.8); LYMPHOCYTES % (AUTO) 19.4 % (21-51); MEAN CORPUSCULAR HEMOGLOBIN 34.4 PG (27.0-31.0); MEAN CORPUSCULAR HGB CONC 34.5 g/dL (33.0-36.5); MEAN CORPUSCULAR VOLUME 99.8 FL (78-98); MEAN PLATELET VOLUME 8.6 FL (7.4-10.4); MONOCYTES # (AUTO) 0.5 X10'3 (0-0.9); MONOCYTES % (AUTO) 7.1 % (2-12); NEUTROPHILS # (AUTO) 5.5 X10'3 (1.8-7.7); NEUTROPHILS % (AUTO) 73.1 % (42-75); PLATELET COUNT 115 X10'3 (140-440); RED BLOOD COUNT 3.48 X10'6 (4.70-6.10); RED CELL DISTRIBUTION WIDTH 13.5 % (11.5-14.5); WHITE BLOOD COUNT 7.5 X10'3 (4.5-11.0)
--- NOTE | 2019-03-11 06:34 | NUR ---
Problems reprioritized. Patient report given, questions answered & plan of care reviewed with ROCHELLE Naranjo. I informed Marcella that pt's blood sugar yesterday at 20:24 was 29 and protocol was followed. Pt is stable at shift change.
--- NOTE | 2019-03-11 06:36 | NUR ---
Only the 2 RN skin check and family history needs to be completed in the D[facility].
[2019-03-11 07:00] LABS: ALANINE AMINOTRANSFERASE 155 U/L (12-78); ALBUMIN 2.3 G/DL (3.4-5.0); ALBUMIN/GLOBULIN RATIO 0.7 (1.1-1.5); ALKALINE PHOSPHATASE 149 IU/L (46-116); ANION GAP 8 (8-16); ASPARTATE AMINO TRANSFERASE 333 U/L (10-37); BILIRUBIN,TOTAL 0.4 MG/DL (0.1-1.0); BLOOD UREA NITROGEN 28 MG/DL (7-18); CALCIUM 8.3 MG/DL (8.5-10.1); CHLORIDE 107 MMOL/L (99-107); CREATININE 1.12 MG/DL (0.60-1.10); GLUCOSE 119 MG/DL (70-104); SODIUM 141 MMOL/L (135-145); TOTAL CARBON DIOXIDE 26.1 MMOL/L (24-32); TOTAL PROTEIN 5.4 G/DL (6.4-8.2); eGFR 66 ML/MIN
[2019-03-11] MEDS: K and/or MAG REPLACEMENT MC SCH (08:00)
[2019-03-11] MEDS: clopidogrel 75mg tablet PO SCH ×2 (08:22→08:24)
[2019-03-11] MEDS: heparin, porcine 5000 units/ml vial SQ SCH (08:22)
[2019-03-11] MEDS: lisinopril 2.5mg tablet PO SCH ×2 (08:23→08:24)
[2019-03-11] MEDS: amiodarone 200mg tablet PO SCH (08:24)
[2019-03-11] MEDS: pantoprazole 40mg Tablet.DR PO SCH (08:24)
[2019-03-11] MEDS: insulin Lispro (HumaLOG) vial - multi-dose SQ SCH (09:57)
[2019-03-11] MEDS ORDERED: INSU100I25 SQ (10:23)
[2019-03-11 11:00] VITALS: BP 128/79
--- NOTE | 2019-03-11 12:25 | NUR ---
Pt in process of leaving during RD visit; pt refused written/verbal DM ed but was agreeable to RD contact information. Addendum: 03/11/19 at [address] Amended: Links added.
[2019-03-11] MEDS ORDERED: insulin glargine (Lantus) pen - multi-dose SQ SCH (21:00)
== END 2019-03-11 12:14 | disposition home or self-care (01) | DRG 637 ==
LOC: ER 13:53 → ED HOLD 15:49 → CICU 2S 18:35 → CMPBEDREQ 19:33 → PCU 3S 03-10 19:00
PROVIDERS: ADMIT Internal Medicine; ATTEND Family Medicine
DX: E10.10 Type 1 diabetes mellitus with ketoacidosis without coma (principal); N17.0 Acute kidney failure with tubular necrosis; R65.11 Systemic inflammatory response syndrome (SIRS) of non-infectious origin with acute organ dysfunction; E87.5 Hyperkalemia; E78.5 Hyperlipidemia, unspecified; D72.829 Elevated white blood cell count, unspecified; D64.9 Anemia, unspecified; N18.3 Chronic kidney disease, stage 3 (moderate); E10.22 Type 1 diabetes mellitus with diabetic chronic kidney disease; R74.8 Abnormal levels of other serum enzymes; E78.00 Pure hypercholesterolemia, unspecified; F17.200 Nicotine dependence, unspecified, uncomplicated; I12.9 Hypertensive chronic kidney disease with stage 1 through stage 4 chronic kidney disease, or unspecified chronic kidney disease; J44.9 Chronic obstructive pulmonary disease, unspecified; K21.9 Gastro-esophageal reflux disease without esophagitis; Z91.11 Patient's noncompliance with dietary regimen; Z82.49 Family history of ischemic heart disease and other diseases of the circulatory system; Z79.899 Other long term (current) drug therapy; Z79.4 Long term (current) use of insulin
CPT/HCPCS: 36415; 36600; 70450; 71045; 76700; 80048; 80053; 80061; 81001; 82803; 82948; 83036; 83605; 83690; 83735; 84100; 84145; 84439; 84443; 85018; 85025; 87040; 87081; 93005; 96365; 96366; 96368; 96375; 99291; G0378; J0696; J1644; J1815; J2405; J2543; J3480

== ENCOUNTER 2019-05-06 02:47 | Emergency (ER) | payer MEDICARE ==
[~2019-05-06] VITALS: Ht 185.4 cm; Wt 72.0 kg
[~2019-05-06 02:47] MED LIST changes: -ASPI-1071 PO; +HUM7525 SQ; -INSU100C4 SQ; +INSU100I25 SQ; -INSU100V12 SQ; -IPRA3AMP31 IH
[2019-05-06] MEDS ORDERED: normal saline 1000ML IV soln IV ONE (02:55)
[2019-05-06 03:22] LABS: BASOPHILS % (AUTO) 0.8 % (0-1); EOSINOPHILS % (AUTO) 0.7 % (0-6); HEMATOCRIT 36.8 % (42.0-52.0); HEMOGLOBIN 12.3 g/dl (14.0-17.9); LYMPHOCYTES % (AUTO) 16.2 % (21-51); MEAN CORPUSCULAR HEMOGLOBIN 33.7 PG (27.0-31.0); MEAN CORPUSCULAR HGB CONC 33.5 g/dL (33.0-36.5); MEAN CORPUSCULAR VOLUME 100.7 FL (78-98); MONOCYTES # (AUTO) 0.7 X10'3 (0-0.9); MONOCYTES % (AUTO) 11.7 % (2-12); NEUTROPHILS # (AUTO) 4.5 X10'3 (1.8-7.7); NEUTROPHILS % (AUTO) 70.6 % (42-75); PLATELET COUNT 270 X10'3 (140-440); RED BLOOD COUNT 3.66 X10'6 (4.70-6.10); WHITE BLOOD COUNT 6.4 X10'3 (4.5-11.0)
[2019-05-06 03:35] LABS: ALANINE AMINOTRANSFERASE 441 U/L (12-78); ALBUMIN 3.1 G/DL (3.4-5.0); ALBUMIN/GLOBULIN RATIO 0.9 (1.1-1.5); ALKALINE PHOSPHATASE 396 IU/L (46-116); ANION GAP 10 (8-16); ASPARTATE AMINO TRANSFERASE 661 U/L (10-37); BILIRUBIN,TOTAL 0.7 MG/DL (0.1-1.0); BLOOD UREA NITROGEN 26 MG/DL (7-18); BUN/CREATININE RATIO 27.7 (5.4-32.0); CALCIUM 8.8 MG/DL (8.5-10.1); CHLORIDE 97 MMOL/L (99-107); CREATININE 0.94 MG/DL (0.60-1.10); POTASSIUM 4.9 MMOL/L (3.5-5.1); SODIUM 134 MMOL/L (135-145); TOTAL CARBON DIOXIDE 27.4 MMOL/L (24-32); TOTAL PROTEIN 6.7 G/DL (6.4-8.2); eGFR 81 ML/MIN
[2019-05-06 03:37] LABS: CLARITY,URINE CLEAR (Clear); COLOR,URINE YELLOW (Yellow); GLUCOSE, URINE >=1000 mg/dl (Neg); KETONES,URINE TRACE mg/dl (Neg); LEUKOCYTE ESTERASE ,URINE NEGATIVE (Neg); NITRITES, URINE NEGATIVE (Neg); OCCULT BLOOD,URINE NEGATIVE (Neg); PROTEIN,URINE NEGATIVE (Neg); UROBILINOGEN,URINE 0.2 E.U/dL (0.2-1.0)
[2019-05-06 03:38] LABS: UA COLLECTION TYPE CLN CATCH MIDSTREAM
[2019-05-06 03:38] LABS: GLUCOSE 516 MG/DL (70-104)
[2019-05-06] MEDS ORDERED: insulin regular, human 10 units/0.1 ml syringe IV ONE ×2 (03:40→04:35)
[2019-05-06 03:45] LABS: BACTERIA,URINE NONE SEEN /HPF (Neg); WBC,URINE NONE SEEN /HPF (0-4)
[2019-05-06 03:46] LABS: RBC,URINE 0-2 /HPF (0-2); SQUAMOUS EPITHELIAL CELL,UR NONE SEEN /LPF (FEW)
[2019-05-06] MEDS ORDERED: potassium Cl 20 mEq SR tablet PO STA (04:33)
[2019-05-06] MEDS ORDERED: normal saline 1000ml 1,000 ML IV ONE (04:35)
[2019-05-06 05:41] VITALS: BP 116/50
== END 2019-05-06 05:43 | disposition home or self-care (01) ==
LOC: ER 02:48
DX: E11.65 Type 2 diabetes mellitus with hyperglycemia (principal); R05 Cough; R30.0 Dysuria; E78.00 Pure hypercholesterolemia, unspecified; I10 Essential (primary) hypertension; J44.9 Chronic obstructive pulmonary disease, unspecified; K21.9 Gastro-esophageal reflux disease without esophagitis; Z79.4 Long term (current) use of insulin; Z79.899 Other long term (current) drug therapy
CPT/HCPCS: 36415; 80053; 81001; 82948; 85025; 96361; 96374; 96376; 99283; J1815; J7030

== ENCOUNTER 2019-05-07 05:32 | Emergency (ER) | payer MEDICARE, OTHER ==
[~2019-05-07] VITALS: Ht 182.9 cm; Wt 72.7 kg
[2019-05-07] MEDS ORDERED: dextrose 50%-water 50ml dispensing syringe IV ONE ×2 (05:42→05:45)
--- NOTE | 2019-05-07 05:44 | NUR ---
NOTIFIED YURI MAYERS OF BS 35. RECEIVED VERBAL ORDER FOR 1 AMP OF [id number] AND TO GIVE PT ORANGE JUICE. ORANGE JUICE GIVEN AND ORDER RECEIVED
--- NOTE | 2019-05-07 06:09 | NUR ---
PROVIDED PT WITH YOGURT AND SANDWICH.
[2019-05-07 07:03] VITALS: BP 136/76
== END 2019-05-07 08:03 | disposition home or self-care (01) ==
LOC: ER 05:33
DX: E11.649 Type 2 diabetes mellitus with hypoglycemia without coma (principal); E78.00 Pure hypercholesterolemia, unspecified; I10 Essential (primary) hypertension; J44.9 Chronic obstructive pulmonary disease, unspecified; K21.9 Gastro-esophageal reflux disease without esophagitis; Z79.4 Long term (current) use of insulin; Z79.899 Other long term (current) drug therapy
CPT/HCPCS: 82948; 96374; 99283

== ENCOUNTER 2019-05-08 23:41 | Emergency (ER) | payer OTHER ==
[~2019-05-08] VITALS: Ht 175.3 cm; Wt 65.9 kg
--- NOTE | 2019-05-09 00:23 | NUR ---
Pt. provided with meal at this time that consist of a whole turkey sandwich, yogurt, fat free milk and orange juice.
[2019-05-09] MEDS ORDERED: LANTUS SQ (00:54)
[2019-05-09 01:52] VITALS: BP 121/84
== END 2019-05-09 01:57 ==
LOC: ER 23:42
DX: E11.649 Type 2 diabetes mellitus with hypoglycemia without coma (principal); E78.00 Pure hypercholesterolemia, unspecified; I10 Essential (primary) hypertension; J44.9 Chronic obstructive pulmonary disease, unspecified; K21.9 Gastro-esophageal reflux disease without esophagitis; Z79.4 Long term (current) use of insulin; Z79.899 Other long term (current) drug therapy
CPT/HCPCS: 82948; 99283

== ENCOUNTER 2019-05-19 16:15 | Inpatient (IN) | payer MEDICARE, OTHER ==
[~2019-05-19] VITALS: Ht 182.9 cm; Wt 74.9 kg
[~2019-05-19 16:15] MED LIST changes: +LANTUS SQ
[2019-05-19] MEDS ORDERED: normal saline 1000ML IV soln IVB ONE ×2 (16:25→20:30)
[2019-05-19] MEDS ORDERED: CefTRIAXone 2gm/D5W 50ml 50 ML IV ONE (16:25)
[2019-05-19] MEDS ORDERED: insulin regular, human 10 units/0.1 ml syringe IV ONE (16:35)
[2019-05-19 16:50] LABS: ABG OXYGEN SATURATION 98.2 % (95-98); ABG PH (T) 6.974 (7.350-7.450); ABG PO2 (T) 174.6 mmHg (83-108); FCOHb 0.3 % (0.5-1.5); FLOW 4 L/min; FMetHb 0.2 % (0.3-1.12); FO2Hb 97.7 % (94-100); TOTAL HEMOGLOBIN 11.9 G/dl (14.0-17.9)
--- NOTE | 2019-05-19 16:58 | NUR ---
Levophed started at 13.63mL/hr per verbal order from EDFL Kip
[2019-05-19] MEDS ORDERED: NORepinephrine 1 mg/ml inj IV ONE (17:00)
[2019-05-19] MEDS ORDERED: adenosine 3mg/ml 2ml vial IV ONE ×2 (17:00→17:30)
[2019-05-19 17:05] LABS: PARTIAL THROMBOPLASTIN TIME 27 SECONDS (22-32)
[2019-05-19 17:07] LABS: CLARITY,URINE SLIGHTLY CLOUDY (Clear); COLOR,URINE YELLOW (Yellow); GLUCOSE, URINE >=1000 mg/dl (Neg); KETONES,URINE >=80 mg/dl (Neg); LEUKOCYTE ESTERASE ,URINE NEGATIVE (Neg); NITRITES, URINE NEGATIVE (Neg); OCCULT BLOOD,URINE TRACE-INTACT (Neg); PH,URINE 5.5 (4.8-8.0); PROTEIN,URINE TRACE mg/dl (Neg); UA COLLECTION TYPE FOLEY CATH; UROBILINOGEN,URINE 0.2 E.U/dL (0.2-1.0)
[2019-05-19 17:11] LABS: URINE AMPHETAMINE SCREEN NEGATIVE (Neg); URINE BARBITUATE SCREEN NEGATIVE (Neg); URINE BENZODIAZEPINES SCREEN NEGATIVE (Neg); URINE CANNABINOID SCREEN NEGATIVE (Neg); URINE COCAINE SCREEN NEGATIVE (Neg); URINE METHADONE SCREEN NEGATIVE (Neg); URINE OPIATE SCREEN NEGATIVE (Neg); URINE PHENCYCLIDINE SCREEN NEGATIVE (Neg)
[2019-05-19] MEDS: NORepinephrine 8mg/ 250ml NS 250 ML IV PRN (17:13)
[2019-05-19 17:14] LABS: MUCUS STRANDS FEW /LPF (Neg); SQUAMOUS EPITHELIAL CELL,UR FEW /LPF (FEW)
[2019-05-19 17:15] LABS: HYALINE CASTS 0-3 /LPF (NEGATIVE)
[2019-05-19 17:16] LABS: RBC,URINE 0-2 /HPF (0-2); WBC,URINE 0-4 /HPF (0-4)
[2019-05-19 17:18] LABS: BACTERIA,URINE FEW /HPF (Neg)
[2019-05-19 17:19] LABS: AMORPHOUS URATES 1+
[2019-05-19 17:24] LABS: LACTIC SEPSIS 3.9 MMOL/L (0.4-2.0)
[2019-05-19 17:25] LABS: HEMATOCRIT 38.2 % (42.0-52.0); MEAN CORPUSCULAR HEMOGLOBIN 34.7 PG (27.0-31.0); MEAN PLATELET VOLUME 7.9 FL (7.4-10.4); PLATELET COUNT 327 X10'3 (140-440); RED BLOOD COUNT 3.74 X10'6 (4.70-6.10); WHITE BLOOD COUNT 12.3 X10'3 (4.5-11.0)
[2019-05-19] MEDS ORDERED: diltiazem 5mg/ml 5ml inj. IV ONE (17:25)
[2019-05-19 17:28] LABS: ALANINE AMINOTRANSFERASE 142 U/L (12-78); ALBUMIN 2.6 G/DL (3.4-5.0); ALBUMIN/GLOBULIN RATIO 0.9 (1.1-1.5); ALKALINE PHOSPHATASE 189 IU/L (46-116); ASPARTATE AMINO TRANSFERASE 102 U/L (10-37); BILIRUBIN,TOTAL 0.8 MG/DL (0.1-1.0); BLOOD UREA NITROGEN 25 MG/DL (7-18); BUN/CREATININE RATIO 16.4 (5.4-32.0); CALCIUM 7.8 MG/DL (8.5-10.1); CHLORIDE 103 MMOL/L (99-107); CREATININE 1.52 MG/DL (0.60-1.10); POTASSIUM 5.3 MMOL/L (3.5-5.1); SODIUM 142 MMOL/L (135-145); TOTAL PROTEIN 5.5 G/DL (6.4-8.2); TROPONIN I < 0.04 NG/ML (0.0-0.05); eGFR 46 ML/MIN
--- NOTE | 2019-05-19 17:31 | NUR ---
6mg Adenosine given
[2019-05-19 17:35] LABS: ANION GAP 34 (8-16)
--- NOTE | 2019-05-19 17:36 | NUR ---
PATIENT'S MOTHER: MARICEL PRAKASH PHONE NUMBER: [phone]
[2019-05-19 17:43] LABS: ETHANOL < 0.010 GM/DL (0.0-0.010); GLUCOSE 517 MG/DL (70-104)
[2019-05-19] MEDS ORDERED: normal saline 1000ml 1,000 ML IVB ONE (17:49)
[2019-05-19] MEDS ORDERED: NORepinephrine 8mg/ 250ml NS 250 ML IV PRN (17:53)
[2019-05-19] MEDS ORDERED: piperacillin/tazo 3.375gm/50ml 50 ML IV ONE (17:55)
[2019-05-19] MEDS: K, MAG and/or Phos replacement - Verify level? MC SCH (18:00)
[2019-05-19] MEDS: insulin regular, human 100 UNIT in normal saline 100ml IV soln 100 ML IV PRN ×2 (18:20)
[2019-05-19] MEDS ORDERED: potassium Cl 20 mEq SR tablet PO PRN ×4 (18:35→18:55)
[2019-05-19] MEDS ORDERED: magnesium Cl slow-release 64mg tablet PO PRN (18:35)
[2019-05-19] MEDS ORDERED: magnesium 2GM in 50ml NS 50 ML IV PRN (18:35)
[2019-05-19] MEDS ORDERED: normal saline 1000ML IV soln IV ONE ×2 (18:35→20:30)
[2019-05-19] MEDS ORDERED: magnesium 4gm in 100ml NS 100 ML IV PRN (18:35)
[2019-05-19] MEDS ORDERED: sodium phosphate inj. 15 MMOL in dextrose 5%-water 150 ML IV PRN (18:35)
[2019-05-19] MEDS ORDERED: Neutra Phos packet PO PRN (18:35)
[2019-05-19] MEDS: normal saline 1000ml 1,000 ML IV SCH ×6 (18:35→22:53)
[2019-05-19] MEDS ORDERED: sodium phosphate inj. 30 MMOL in dextrose 5%-water 250 ML IV PRN (18:35)
[2019-05-19] MEDS ORDERED: ondansetron/PF 4mg/2ml inj IV PRN (18:35)
[2019-05-19] MEDS ORDERED: acetaminophen 325mg tablet PO PRN ×2 (18:35)
[2019-05-19] MEDS ORDERED: NORepinephrine inj. 16 MG in normal saline 500ml IV soln 484 ML IV SCH (18:45)
[2019-05-19] MEDS ORDERED: sodium bicarbonate (8.4%) inj. 50 MEQ in dextrose 5% water 500ml 250 ML IV PRN (18:53)
[2019-05-19] MEDS ORDERED: sodium bicarbonate (8.4%) inj. 100 MEQ in dextrose 5% water 500ml 500 ML IV PRN (18:53)
[2019-05-19] MEDS ORDERED: insulin regular, DKA only 100 UNIT in normal saline 100ml IV soln 100 ML IV SCH ×2 (18:53)
[2019-05-19] MEDS ORDERED: potassium CL 10mEq/100ml bag 100 ML IV PRN (18:55)
[2019-05-19] MEDS ORDERED: insulin regular, human vial - multi-dose IV PRN (18:55)
[2019-05-19] MEDS ORDERED: VANCOmycin 1250MG/NS 250ml Bag 250 ML IV ONE (19:01)
[2019-05-19] MEDS: pantoprazole 40 MG vial IV SCH (19:01)
[2019-05-19 19:17] LABS: ALBUMIN 2.3 G/DL (3.4-5.0); ANION GAP 26 (8-16); BLOOD UREA NITROGEN 26 MG/DL (7-18); BUN/CREATININE RATIO 18.1 (5.4-32.0); CALCIUM 6.3 MG/DL (8.5-10.1); CHLORIDE 110 MMOL/L (99-107); CREATININE 1.44 MG/DL (0.60-1.10); GLUCOSE 433 MG/DL (70-104); PHOSPHORUS 4.3 MG/DL (2.3-4.5); POTASSIUM 4.2 MMOL/L (3.5-5.1); SODIUM 143 MMOL/L (135-145); eGFR 49 ML/MIN
[2019-05-19 19:21] LABS: TOTAL CARBON DIOXIDE 7.4 MMOL/L (24-32)
[2019-05-19 19:40] LABS: LYMPHOCYTES % (MANUAL) 16 % (21-51); TOTAL CELLS COUNTED 100
[2019-05-19 19:41] LABS: EOSINOPHILS % (MANUAL) 2 % (0-6); MONOCYTES % (MANUAL) 3 % (2-12); NEUTROPHILS % (MANUAL) 79 % (42-75)
[2019-05-19 19:42] LABS: PLATELET ESTIMATE NORMAL; SMUDGE CELLS 1+
[2019-05-19] MEDS ORDERED: K and/or MAG REPLACEMENT MC SCH (20:00)
[2019-05-19] MEDS: heparin, porcine 5000 units/ml vial SQ SCH (20:35)
[2019-05-19 21:01] LABS: ABG OXYGEN SATURATION 98.1 % (95-98); ABG PH (T) 7.217 (7.350-7.450); ABG PO2 (T) 117.2 mmHg (83-108); ALLEN'S TEST Positive; FCOHb 0.1 % (0.5-1.5); FMetHb 0.1 % (0.3-1.12); FO2Hb 97.9 % (94-100); PATIENT TEMPERATURE 34.2; RESPIRATORY RATE (OBSERVED) 24 b/min; TOTAL HEMOGLOBIN 12.7 G/dl (14.0-17.9)
[2019-05-19] MEDS ORDERED: calcium chloride 100 MG/1 ML inj IV ONE (21:10)
--- NOTE | 2019-05-19 21:33 | NUR ---
increased levophed to .15mcg/kg/min, pt bp 83/56.
[2019-05-19 21:55] LABS: ALANINE AMINOTRANSFERASE 192 U/L (12-78); ALBUMIN 2.3 G/DL (3.4-5.0); ALBUMIN/GLOBULIN RATIO 0.9 (1.1-1.5); ALKALINE PHOSPHATASE 165 IU/L (46-116); ANION GAP 23 (8-16); ASPARTATE AMINO TRANSFERASE 302 U/L (10-37); BILIRUBIN,TOTAL 0.6 MG/DL (0.1-1.0); BLOOD UREA NITROGEN 23 MG/DL (7-18); BUN/CREATININE RATIO 18.3 (5.4-32.0); CALCIUM 6.4 MG/DL (8.5-10.1); CHLORIDE 112 MMOL/L (99-107); CREATININE 1.26 MG/DL (0.60-1.10); GLUCOSE 317 MG/DL (70-104); POTASSIUM 3.5 MMOL/L (3.5-5.1); SODIUM 145 MMOL/L (135-145); TOTAL PROTEIN 4.9 G/DL (6.4-8.2); eGFR 57 ML/MIN
[2019-05-19] MEDS: potassium CL 20mEq in D5-1/2NS 1,000 ML IV PRN (22:00)
[2019-05-19] MEDS ORDERED: calcium chloride inj. 1,000 MG in normal saline 100ml IV soln 100 ML IV ONE (22:10)
--- NOTE | 2019-05-19 22:35 | NUR ---
Patient in room ICU 2042. I have received report from Tho RN (ER) and had the opportunity to ask questions and assume patient care. Patient arrived on ICU in DKA with insulin, levophed and D5W w/ 20K+ running. He is lethargic but can respond to voice commands. Will continue to monitor closely.
[2019-05-19 23:00] VITALS: BP 103/63
[2019-05-19 23:46] LABS: ALBUMIN 2.4 G/DL (3.4-5.0); ANION GAP 23 (8-16); BLOOD UREA NITROGEN 24 MG/DL (7-18); BUN/CREATININE RATIO 18.9 (5.4-32.0); CALCIUM 7.6 MG/DL (8.5-10.1); CHLORIDE 112 MMOL/L (99-107); CREATININE 1.27 MG/DL (0.60-1.10); GLUCOSE 277 MG/DL (70-104); PHOSPHORUS 2.7 MG/DL (2.3-4.5); POTASSIUM 3.5 MMOL/L (3.5-5.1); SODIUM 146 MMOL/L (135-145); eGFR 57 ML/MIN
[2019-05-19 23:50] LABS: TOTAL CARBON DIOXIDE 10.9 MMOL/L (24-32)
[2019-05-20] VITALS (28 sets, daily range): BP systolic 73–125; BP diastolic 48–71
[2019-05-20] MEDS: metoprolol tartrate 1mg/ml inj IV PRN ×2 (00:09→00:32)
[2019-05-20] MEDS: piperacillin/tazo 3.375gm/50ml 50 ML IV SCH ×3 (00:28→15:40)
[2019-05-20 01:02] LABS: HEMOGLOBIN A1C 12.8 % (4.5-6.2)
[2019-05-20] MEDS: normal saline 1000ml 1,000 ML IV SCH ×3 (01:15→03:38)
[2019-05-20 03:38] LABS: BASOPHILS % (AUTO) 0.2 % (0-1); EOSINOPHILS % (AUTO) 0.1 % (0-6); HEMATOCRIT 33.4 % (42.0-52.0); HEMOGLOBIN 11.2 g/dl (14.0-17.9); LYMPHOCYTES # (AUTO) 0.8 X10'3 (1.1-4.8); LYMPHOCYTES % (AUTO) 7.4 % (21-51); MEAN CORPUSCULAR HEMOGLOBIN 33.9 PG (27.0-31.0); MEAN CORPUSCULAR HGB CONC 33.6 g/dL (33.0-36.5); MEAN CORPUSCULAR VOLUME 100.8 FL (78-98); MEAN PLATELET VOLUME 7.9 FL (7.4-10.4); MONOCYTES # (AUTO) 0.8 X10'3 (0-0.9); MONOCYTES % (AUTO) 7.6 % (2-12); NEUTROPHILS # (AUTO) 9.3 X10'3 (1.8-7.7); NEUTROPHILS % (AUTO) 84.7 % (42-75); PLATELET COUNT 252 X10'3 (140-440); RED BLOOD COUNT 3.32 X10'6 (4.70-6.10); RED CELL DISTRIBUTION WIDTH 14.6 % (11.5-14.5)
[2019-05-20 03:55] LABS: ALANINE AMINOTRANSFERASE 182 U/L (12-78); ALBUMIN 2.3 G/DL (3.4-5.0); ALBUMIN/GLOBULIN RATIO 0.9 (1.1-1.5); ALKALINE PHOSPHATASE 167 IU/L (46-116); ANION GAP 16 (8-16); ASPARTATE AMINO TRANSFERASE 253 U/L (10-37); BILIRUBIN,TOTAL 0.6 MG/DL (0.1-1.0); BLOOD UREA NITROGEN 22 MG/DL (7-18); BUN/CREATININE RATIO 18.6 (5.4-32.0); CALCIUM 7.4 MG/DL (8.5-10.1); CHLORIDE 114 MMOL/L (99-107); CREATININE 1.18 MG/DL (0.60-1.10); GLUCOSE 214 MG/DL (70-104); MAGNESIUM 1.4 MG/DL (1.5-2.4); PHOSPHORUS 1.9 MG/DL (2.3-4.5); POTASSIUM 3.4 MMOL/L (3.5-5.1); SODIUM 147 MMOL/L (135-145); TOTAL CARBON DIOXIDE 17.2 MMOL/L (24-32); TOTAL PROTEIN 4.9 G/DL (6.4-8.2); eGFR 62 ML/MIN
[2019-05-20] MEDS ORDERED: potassium Cl 20mEq/100mL bag 100 ML IV PRN (04:10)
[2019-05-20] MEDS: potassium CL 10mEq/100ml bag 100 ML IV PRN ×2 (05:40→07:28)
--- NOTE | 2019-05-20 06:32 | NUR ---
Patient in room ICU 2042. I have received report from Jodi BYRD and had the opportunity to ask questions and assume patient care.
--- NOTE | 2019-05-20 06:46 | NUR ---
Problems reprioritized. Patient report given, questions answered & plan of care reviewed with Alice BYRD.
[2019-05-20] MEDS: NORepinephrine 8mg/ 250ml NS 250 ML IV PRN (06:52)
[2019-05-20 06:58] LABS: ABG PCO2 (T) < 10.0 mmHg (35.0-45.0)
[2019-05-20] MEDS: insulin regular, human 100 UNIT in normal saline 100ml IV soln 100 ML IV PRN ×2 (06:59)
[2019-05-20] MEDS: pantoprazole 40 MG vial IV SCH (07:27)
[2019-05-20] MEDS: heparin, porcine 5000 units/ml vial SQ SCH ×2 (07:27→19:52)
[2019-05-20] MEDS ORDERED: K and/or MAG REPLACEMENT MC SCH (08:00)
[2019-05-20] MEDS: K, MAG and/or Phos replacement - Verify level? MC SCH (08:00)
[2019-05-20] MEDS ORDERED: IPRA4AER IH (09:28)
[2019-05-20 09:29] LABS: ALBUMIN 2.1 G/DL (3.4-5.0); ANION GAP 7 (8-16); BLOOD UREA NITROGEN 22 MG/DL (7-18); BUN/CREATININE RATIO 18.8 (5.4-32.0); CHLORIDE 116 MMOL/L (99-107); CREATININE 1.17 MG/DL (0.60-1.10); GLUCOSE 152 MG/DL (70-104); POTASSIUM 3.9 MMOL/L (3.5-5.1); SODIUM 145 MMOL/L (135-145); TOTAL CARBON DIOXIDE 21.7 MMOL/L (24-32); eGFR 63 ML/MIN
[2019-05-20] MEDS ORDERED: INSU100I25 SQ (09:30)
[2019-05-20] MEDS ORDERED: glucagon, human recombinant 1mg kit SUBCUT PRN (10:00)
[2019-05-20] MEDS ORDERED: dextrose 50%-water 50ml dispensing syringe IV PRN ×2 (10:00)
[2019-05-20] MEDS ORDERED: dextrose ORAL solution 15 GM/59 ML bottle PO PRN (10:00)
[2019-05-20] MEDS ORDERED: MESSAGE TO PHARMACY PO ONE (10:00)
[2019-05-20] MEDS: potassium CL 20mEq in D5-1/2NS 1,000 ML IV PRN (10:18)
[2019-05-20] MEDS ORDERED: insulin glargine (Lantus) pen - multi-dose SQ ONE (10:55)
[2019-05-20] MEDS ORDERED: potassium CL 20mEq in D5-1/2NS 1,000 ML IV SCH (11:00)
[2019-05-20] MEDS: potassium CL 20mEq in D5-1/2NS 1,000 ML IV SCH ×3 (12:29→16:15)
--- NOTE | 2019-05-20 12:54 | NUR ---
DM Consult: Initial cardiac diet consult error supposed to be DM consult as well. Pt T1DM A1C 12.8 admit w/ DKA GLU 137 down from 517. Pt reports trouble getting insulin and RN reports was possibly recently in intermediate as well. Pt anion gap WNL and advanced to carb controlled diet. Pt seen by RD for written/verbal DM ed w/ RD contact information provided. Pt reports does not really have trouble receiving refills just needs to be more compliant taking meds and picking up med refills. RD encouraged importance of medication compliance, attending CDE course, and accurate carb portion sizing w/ meals. Pt declines additional questions at this time. MCV 102 w/ no etoh or drug abuse hx. No BM yet this admit. Will continue to monitor. Rec: 1. continue carb controlled diet per MD 2. monitor for additional protein needs pending PO hx 3. bowel care as needed 4. wt per rx Addendum: 05/20/19 at [address] Amended: Links added.
[2019-05-20] MEDS: insulin Lispro (HumaLOG) vial - multi-dose SQ SCH (13:49)
[2019-05-20] MEDS ORDERED: ALBU8HFA PO (14:31)
[2019-05-20 16:38] LABS: ALBUMIN 2.1 G/DL (3.4-5.0); ANION GAP 8 (8-16); BLOOD UREA NITROGEN 19 MG/DL (7-18); BUN/CREATININE RATIO 16.4 (5.4-32.0); CALCIUM 7.2 MG/DL (8.5-10.1); CHLORIDE 113 MMOL/L (99-107); CREATININE 1.16 MG/DL (0.60-1.10); GLUCOSE 159 MG/DL (70-104); POTASSIUM 3.7 MMOL/L (3.5-5.1); SODIUM 143 MMOL/L (135-145); TOTAL CARBON DIOXIDE 22.5 MMOL/L (24-32); eGFR 63 ML/MIN
--- NOTE | 2019-05-20 17:33 | NUR ---
removed pt's CVL and held pressure until bleeding stopped; pt tolerated procedure well. removed pt tesfaye catheter; pt tolerated procedure well.
--- NOTE | 2019-05-20 18:22 | NUR ---
pt report called to Julieth BYRD; all questions answered.
--- NOTE | 2019-05-20 18:22 | NUR ---
Problems reprioritized. Patient report given, questions answered & plan of care reviewed with Davina BYRD.
[2019-05-20] MEDS ORDERED: VANCOmycin 1250MG/NS 250ml Bag 250 ML IV SCH (19:00)
[2019-05-20] MEDS ORDERED: amiodarone 150mg/dext, iso-os 100 ML IV ONE (19:15)
[2019-05-20] MEDS: amiodarone/D5 360MG/200ML BAG 200 ML IV SCH (19:33)
[2019-05-20] MEDS: lactobacillus rhamnosus 10,000 MMU CELLS/CAPSULE PO SCH (19:52)
--- NOTE | 2019-05-20 20:01 | NUR ---
Late entry:1829: Patient in room ICU 2042. I have received report from Alice BYRD and had the opportunity to ask questions and assume patient care.1831: Pt up in chair eating, dinner talking to family on the phone. Pt converted to SVT in the 150's, encouraged cough, no change in rate. BP:99/57. 1904: HR unchanged, 250 mL NS fluid bolus given for decreased blood pressure. Kasey Bah notified, orders received. 2000: Amiodarone infusing. Pt converted to SR, HR: 65, BP: 97/58. Will continue to monitor.
[2019-05-20] MEDS: insulin glargine (Lantus) pen - multi-dose SQ SCH (21:55)
--- NOTE | 2019-05-20 22:20 | NUR ---
Pt remains in SR, HR:62,BP:102/59. Unable to place PIV, multiple attempts by RN'aron Chun notified, orders received to place EJ. Amiodarone infusing.
--- NOTE | 2019-05-20 23:21 | NUR ---
Received report from ROCHELLE Ghosh
--- NOTE | 2019-05-20 23:21 | NUR ---
Report called to receiving nurse Julieth BYRD. Transferred via wheelchair to room 314 on [facility] unit quality assurance monitor body. No belongings. Special Issues communicated to receiving nurse.
--- NOTE | 2019-05-21 01:00 | NUR ---
spoke with Ankita Bah NP. amiodarone and zosyn are not compatible. pt only has one EJ. pt HR is ranging in the 60s. will switch over to PO amiodarone so zosyn will be able to run.
[2019-05-21] MEDS: piperacillin/tazo 3.375gm/50ml 50 ML IV SCH ×2 (01:17→08:24)
[2019-05-21] MEDS: amiodarone/D5 360MG/200ML BAG 200 ML IV SCH (01:19)
[2019-05-21 02:00] VITALS: BP 95/57
[2019-05-21 05:27] LABS: BASOPHILS % (AUTO) 0.5 % (0-1); EOSINOPHILS # (AUTO) 0.1 X10'3 (0-0.9); HEMATOCRIT 35.8 % (42.0-52.0); HEMOGLOBIN 12.2 g/dl (14.0-17.9); LYMPHOCYTES # (AUTO) 1.6 X10'3 (1.1-4.8); LYMPHOCYTES % (AUTO) 15.2 % (21-51); MEAN CORPUSCULAR HEMOGLOBIN 33.8 PG (27.0-31.0); MEAN CORPUSCULAR HGB CONC 33.9 g/dL (33.0-36.5); MEAN CORPUSCULAR VOLUME 99.7 FL (78-98); MEAN PLATELET VOLUME 7.8 FL (7.4-10.4); MONOCYTES # (AUTO) 0.6 X10'3 (0-0.9); MONOCYTES % (AUTO) 5.4 % (2-12); NEUTROPHILS % (AUTO) 77.9 % (42-75); PLATELET COUNT 160 X10'3 (140-440); RED BLOOD COUNT 3.59 X10'6 (4.70-6.10); WHITE BLOOD COUNT 10.2 X10'3 (4.5-11.0)
[2019-05-21 05:48] LABS: ALANINE AMINOTRANSFERASE 155 U/L (12-78); ALBUMIN 2.4 G/DL (3.4-5.0); ALBUMIN/GLOBULIN RATIO 0.8 (1.1-1.5); ALKALINE PHOSPHATASE 163 IU/L (46-116); ANION GAP 11 (8-16); ASPARTATE AMINO TRANSFERASE 119 U/L (10-37); BILIRUBIN,DIRECT 0.2 MG/DL (0-0.3); BILIRUBIN,TOTAL 0.3 MG/DL (0.1-1.0); BLOOD UREA NITROGEN 18 MG/DL (7-18); BUN/CREATININE RATIO 16.4 (5.4-32.0); CHLORIDE 111 MMOL/L (99-107); GLUCOSE 52 MG/DL (70-104); MAGNESIUM 1.6 MG/DL (1.5-2.4); PHOSPHORUS 1.8 MG/DL (2.3-4.5); POTASSIUM 3.6 MMOL/L (3.5-5.1); SODIUM 144 MMOL/L (135-145); TOTAL CARBON DIOXIDE 21.9 MMOL/L (24-32); TOTAL PROTEIN 5.4 G/DL (6.4-8.2); eGFR 67 ML/MIN
[2019-05-21 06:00] VITALS: BP 97/54
--- NOTE | 2019-05-21 06:33 | NUR ---
blood sugar was checked 0200 it was 135. glucose level was 52 at 0500. patient is asymptomatic. patient will be receiving apple juice. day shift RN aware.
--- NOTE | 2019-05-21 06:35 | NUR ---
Patient in room MED 314. I have received report from ROCHELLE Clancy and had the opportunity to ask questions and assume patient care.
--- NOTE | 2019-05-21 06:38 | NUR ---
gave report to ROCHELLE Mendoza
[2019-05-21] MEDS: dextrose ORAL solution 15 GM/59 ML bottle PO PRN (07:41)
[2019-05-21] MEDS: K, MAG and/or Phos replacement - Verify level? MC SCH (08:00)
--- NOTE | 2019-05-21 08:21 | NUR ---
PICC NURSE PAGED 314: WALL - CAN YOU PLACE EXTENDED? THANK YOU
[2019-05-21] MEDS: lactobacillus rhamnosus 10,000 MMU CELLS/CAPSULE PO SCH ×2 (08:23→22:21)
[2019-05-21] MEDS: amiodarone 200mg tablet PO SCH (08:23)
[2019-05-21] MEDS: pantoprazole 40 MG vial IV SCH (08:23)
[2019-05-21] MEDS: heparin, porcine 5000 units/ml vial SQ SCH ×2 (08:24→22:22)
--- NOTE | 2019-05-21 09:30 | NUR ---
pt. blood sugar was 43 before breakfast. 2 shots of glucose were given as well as breakfast. pt. did seem confused to RN and seemed to forget that he had asked them to bring him his breakfast. pt. denied other symptoms. pt. blood sugar went up to 97 after breakfast and is AOx4.
[2019-05-21] MEDS ORDERED: VANCOMYCIN 1gm/H2O 200ml PB 200 ML IV SCH (10:00)
[2019-05-21 11:00] VITALS: BP 106/69
[2019-05-21] MEDS ORDERED: potassium CL 20mEq in D5-1/2NS 1,000 ML IV SCH (12:29)
[2019-05-21 15:00] VITALS: BP 116/65
[2019-05-21 18:00] VITALS: BP 119/69
--- NOTE | 2019-05-21 18:00 | NUR ---
Patient in room MED 314. I have received report from Kelly BYRD and had the opportunity to ask questions and assume patient care.
[2019-05-21] MEDS: insulin Lispro (HumaLOG) vial - multi-dose SQ SCH (19:12)
--- NOTE | 2019-05-21 19:25 | NUR ---
Problems reprioritized. Patient report given, questions answered & plan of care reviewed with ROCHELLE Salgado.
[2019-05-21 22:00] VITALS: BP 116/59
--- NOTE | 2019-05-21 22:45 | NUR ---
spoke with Ankita about pts 337 BS and his history of dropping into the 20's and 40's when given both humalog and lantus at the same time, she ordered to just give the 11 units of lantus per protocol now and recheck BS at 0200 and call her then with out of range BS so she can write a one time dose of correctional
[2019-05-21] MEDS: insulin glargine (Lantus) pen - multi-dose SQ SCH (22:54)
[2019-05-22] MEDS ORDERED: insulin Lispro (HumaLOG) vial - multi-dose SQ ONE (01:55)
[2019-05-22 02:00] VITALS: BP 120/69
--- NOTE | 2019-05-22 02:28 | NUR ---
0200 glucose check was 268, June was on the unit and ordered a one time give of 4 units of humalog, will recheck glucose in morning
[2019-05-22 03:10] LABS: BASOPHILS % (AUTO) 0.7 % (0-1); EOSINOPHILS % (AUTO) 0.7 % (0-6); HEMOGLOBIN 10.9 g/dl (14.0-17.9); LYMPHOCYTES # (AUTO) 1.3 X10'3 (1.1-4.8); LYMPHOCYTES % (AUTO) 20.3 % (21-51); MEAN CORPUSCULAR HEMOGLOBIN 34.2 PG (27.0-31.0); MEAN CORPUSCULAR HGB CONC 34.2 g/dL (33.0-36.5); MEAN CORPUSCULAR VOLUME 100.1 FL (78-98); MEAN PLATELET VOLUME 8.6 FL (7.4-10.4); MONOCYTES # (AUTO) 0.5 X10'3 (0-0.9); MONOCYTES % (AUTO) 7.2 % (2-12); NEUTROPHILS # (AUTO) 4.5 X10'3 (1.8-7.7); NEUTROPHILS % (AUTO) 71.1 % (42-75); PLATELET COUNT 121 X10'3 (140-440); RED CELL DISTRIBUTION WIDTH 14.9 % (11.5-14.5); WHITE BLOOD COUNT 6.4 X10'3 (4.5-11.0)
[2019-05-22 03:18] LABS: ALANINE AMINOTRANSFERASE 135 U/L (12-78); ALBUMIN 2.4 G/DL (3.4-5.0); ALBUMIN/GLOBULIN RATIO 0.9 (1.1-1.5); ALKALINE PHOSPHATASE 157 IU/L (46-116); ANION GAP 6 (8-16); ASPARTATE AMINO TRANSFERASE 86 U/L (10-37); BILIRUBIN,TOTAL 0.4 MG/DL (0.1-1.0); BLOOD UREA NITROGEN 22 MG/DL (7-18); BUN/CREATININE RATIO 22.9 (5.4-32.0); CHLORIDE 108 MMOL/L (99-107); CREATININE 0.96 MG/DL (0.60-1.10); GLUCOSE 246 MG/DL (70-104); MAGNESIUM 1.5 MG/DL (1.5-2.4); PHOSPHORUS 1.8 MG/DL (2.3-4.5); POTASSIUM 3.8 MMOL/L (3.5-5.1); SODIUM 139 MMOL/L (135-145); TOTAL PROTEIN 5.1 G/DL (6.4-8.2); eGFR 79 ML/MIN
[2019-05-22 06:00] VITALS: BP 107/62
--- NOTE | 2019-05-22 06:00 | NUR ---
Problems reprioritized. Patient report given, questions answered & plan of care reviewed with Eleanor BYRD.
[2019-05-22] MEDS ORDERED: pantoprazole 40mg Tablet.DR PO SCH (07:30)
[2019-05-22] MEDS: heparin, porcine 5000 units/ml vial SQ SCH (08:00)
[2019-05-22] MEDS: K, MAG and/or Phos replacement - Verify level? MC SCH (08:00)
[2019-05-22] MEDS: lactobacillus rhamnosus 10,000 MMU CELLS/CAPSULE PO SCH (08:28)
[2019-05-22] MEDS: amiodarone 200mg tablet PO SCH (08:28)
[2019-05-22 11:00] VITALS: BP 117/67
--- NOTE | 2019-05-22 13:35 | NUR ---
RN provided patient teaching on medications, DANIELLE, dehydration and diabetes survivor skills. RN discussed ways to lower A1C, pt and his mom agreed to follow up with PCP at [facility] regarding his recent hospitalization and ways to lower A1C. Pt left with his mom at 1335, he ambulated by self, normal gait, all personal belongings were taken from the room.
[2019-05-22] MEDS ORDERED: VANCOMYCIN LEVEL IV ONE ×2 (18:30→21:30)
[2019-05-23 11:26] LABS: HBSAG SCREEN Negative (Negative); HEPATITIS C ANTIBODY <0.1 s/co ratio (0.0-0.9)
== END 2019-05-22 13:30 | disposition home or self-care (01) | DRG 637 ==
LOC: ER 16:16 → ED HOLD 18:43 → ICU 2S 22:23 → MED 3N 05-20 23:10
PROVIDERS: ATTEND Internal Medicine Critical Care Medicine
DX: E11.10 Type 2 diabetes mellitus with ketoacidosis without coma (principal); G93.41 Metabolic encephalopathy; N17.9 Acute kidney failure, unspecified; E86.0 Dehydration; J44.9 Chronic obstructive pulmonary disease, unspecified; E11.649 Type 2 diabetes mellitus with hypoglycemia without coma; E78.00 Pure hypercholesterolemia, unspecified; E78.5 Hyperlipidemia, unspecified; I10 Essential (primary) hypertension; Z88.8 Allergy status to other drugs, medicaments and biological substances; Z79.899 Other long term (current) drug therapy
CPT/HCPCS: 36415; 36556; 36600; 70450; 71045; 76937; 80048; 80053; 80305; 80320; 81001; 82140; 82248; 82570; 82803; 82948; 83036; 83605; 83735; 84100; 84145; 84300; 84439; 84443; 84484; 85018; 85025; 85610; 85730; 86803; 87040; 87081; 87340; 93005; 96365; 96367; 96368; 96375; 97110; 97116; 97161; 97530; 99291; 99292; C9113; G0378; J0153; J0282; J0696; J1644; J1815; J2543; J3370; J3480; J3490; J7040